=== PATIENT | female | born 1985 | race Caucasian/White ===

== ENCOUNTER → 2018-01-12 15:08 | Outpatient (CLI) | payer MEDICARE, SELFPAY ==
--- NOTE | 2018-01-12 15:13 | DI.RAD.S_ITS ---
PROCEDURE: XR CHEST 2V INDICATIONS: Shortness of breath TECHNIQUE: 2 views of the chest were acquired. COMPARISON: [facility], , XR CXR 2V, 02/24/2004, 12:19. FINDINGS: Surgical changes and devices: None. Lungs and pleura: No pleural effusions or pneumothorax. Lungs are clear. Mediastinum: Mediastinal contours are normal. Heart size is normal. Hiatal hernia Bones and chest wall: No suspicious bony abnormalities. Soft tissues appear unremarkable. IMPRESSION: No acute disease. Hiatal hernia Dictated by: Roberto Mckee M.D. on 01/12/2018 at 16:49 Approved by: Roberto Mckee M.D. on 01/12/2018 at 16:51
[2018-01-12 16:07] LABS: Add Manual Diff / Slide Review NO; Basophils Percent Auto 1.4 % (0-2); Eosinophils Percent Auto 4.1 % (2-4); Mean Corpuscular HGB Conc 27.2 % (30-36); Mean Corpuscular Hemoglobin 14.7 PG (26-34); Mean Corpuscular Volume 54.3 fL (80-100); Monocytes Percent Auto 4.8 % (3-14); Neutrophils Absolute Auto 3500 /uL (3000-5900); Neutrophils Percent Auto 68.7 % (50-75); Platelet Count 382 X10^3/uL (150-400); Red Blood Cell Count 3.31 X10^6/uL (4.0-5.2); Red Cell Distribution Width 21.1 % (11.6-14.8)
[2018-01-12 16:25] LABS: Alanine Aminotransferase 21 IU/L (9-52); Albumin 4.1 g/dL (3.5-5.0); Albumin Globulin Ratio 1.5 (1.0-2.8); Alkaline Phosphatase 69 U/L (38-126); Aspartate Aminotransferase 16 IU/L (14-36); BUN Creatinine Ratio 22.5 (6-22); Bilirubin Total 0.2 mg/dL (0.2-1.3); Blood Urea Nitrogen 18 mg/dL (7-17); Calcium 8.8 mg/dL (8.4-10.2); Carbon Dioxide 22 mmol/L (22-32); Chloride 105 mmol/L (98-107); Estimated Glomerular Filt Rate > 60.0 mL/min (>60); Globulin 2.7 g/dL (1.7-4.1); Glucose 116 mg/dL (70-100); HEMOLYSIS < 15 (0-50); Potassium 4.1 mmol/L (3.4-5.1); Sodium 140 mmol/L (137-145); Total Protein 6.8 g/dL (6.3-8.2)
[2018-01-12 16:26] LABS: Hemoglobin 4.9 g/dL (12.0-16.0)
[2018-01-12 16:40] LABS: Anisocytosis 2+; Hypochromasia 3+; Microcytosis 3+; Polychromasia 1+
[2018-01-12 16:55] LABS: Thyroid Stimulating Hormone 0.58 uIU/mL (0.47-4.68)
== END ==
PROVIDERS: PCP Physician Assistant; Visit Provider Physician Assistant
DX: R06.09 Other forms of dyspnea (principal); R53.83 Other fatigue
CPT/HCPCS: 36415; 71046; 80053; 84443; 85025

== ENCOUNTER 2018-01-13 09:11 | Observation (INO) | payer MEDICARE, SELFPAY ==
[2018-01-13] VITALS (13 sets, daily range): BP systolic 114–155; BP diastolic 59–94; PULSE 76–107; RESP 12–22; TEMP 36.4–37.2; O2SAT 98–100; BMI 29.5
[2018-01-13 09:59] LABS: INR 1.1 (0.9-1.3); Prothrombin Time 12.1 SECONDS (10.1-12.7)
[2018-01-13 10:00] LABS: Add Manual Diff / Slide Review NO; Basophils Percent Auto 0.9 % (0-2); Eosinophils Percent Auto 5.4 % (2-4); Lymphocytes Percent Auto 26.4 % (25-40); Mean Corpuscular HGB Conc 27.2 % (30-36); Mean Corpuscular Hemoglobin 14.6 PG (26-34); Mean Corpuscular Volume 53.6 fL (80-100); Monocytes Percent Auto 8.4 % (3-14); Neutrophils Absolute Auto 2100 /uL (3000-5900); Neutrophils Percent Auto 58.9 % (50-75); Platelet Count 370 X10^3/uL (150-400); Red Blood Cell Count 3.46 X10^6/uL (4.0-5.2); White Blood Cell Count 3.6 X10^3/uL (4.5-11.0)
[2018-01-13 10:02] LABS: Hemoglobin 5.1 g/dL (12.0-16.0); PTT Partial Thromboplastin Tim 23 SECONDS (26.4-36.2)
[2018-01-13 10:03] LABS: Alanine Aminotransferase 22 IU/L (9-52); Albumin 4.3 g/dL (3.5-5.0); Albumin Globulin Ratio 1.6 (1.0-2.8); Alkaline Phosphatase 66 U/L (38-126); Aspartate Aminotransferase 19 IU/L (14-36); BUN Creatinine Ratio 17.5 (6-22); Bilirubin Total 0.3 mg/dL (0.2-1.3); Blood Urea Nitrogen 14 mg/dL (7-17); Calcium 9.1 mg/dL (8.4-10.2); Carbon Dioxide 25 mmol/L (22-32); Chloride 105 mmol/L (98-107); Estimated Glomerular Filt Rate > 60.0 mL/min (>60); Globulin 2.7 g/dL (1.7-4.1); Glucose 98 mg/dL (70-100); HEMOLYSIS < 15 (0-50); Hematocrit 18.6 % (36-46); Potassium 4.1 mmol/L (3.4-5.1); Sodium 143 mmol/L (137-145)
--- NOTE | 2018-01-13 11:15 | ED.RECABL ---
HPI - Recheck/Abnormal Lab/Rx General Chief Complaint: Recheck/Abnormal Lab/Rx Stated Complaint: IRON CRITICALLY LOW Time Seen by Provider: 01/13/18 09:26 Source: patient Mode of arrival: ambulatory Limitations: no limitations History of Present Illness HPI narrative: This is a 32-year-old female comes to the emergency department for abnormal lab work. She was told she has a critically low iron level. When evaluated in the computer it shows her hemoglobin is in the range of 4. Patient states that she has not noticed any bleeding, she has not had abnormally heavy periods, she has not noticed any black or bloody stools. She has not had any other issues with bleeding. She has noted that she gets short of breath and has chest pain when she exerts herself particularly going up stairs, she has also noted that her legs get crampy and uncomfortable as well. Patient states she will sometimes feel lightheaded. She is not having syncope. She has been continuing her daily activities of does get tired very easily. She is set up for a PFT and has recently been given albuterol inhaler only discussed this may be related more to her low hemoglobin and anemia and having any lung disease. Related Data Home Medications Medication Instructions Recorded Confirmed [id number] 250 1 tab PO PRN PRN 12/29/17 01/13/18 mg-250 mg-65 mg tablet levonorgestrel-ethinyl estrad 1 tab PO DAILY 01/13/18 01/13/18 [Less[place]] Previous Rx's Medication Instructions Recorded albuterol sulfate HFA 90 2 puff INHALATION ONCE PRN #18 gram 12/29/17 mcg/actuation aerosol inhaler Allergies Allergy/AdvReac Type Severity Reaction Status Date / Time No Known Drug Allergies Allergy Unverified 12/29/17 14:34 Review of Systems Review of Systems All systems reviewed & are unremarkable except as noted in HPI and below Constitutional Denies anorexia, Reports fatigue, Denies fever(s), Reports headache(s), Reports malaise, Denies night sweats and Denies weakness ENT Ears, Nose, Mouth, and Throat: Reports headache(s) Cardiovascular Reports chest pain, Denies chest pain at rest, Reports chest pain with activity, Denies diaphoresis, Denies syncope, Denies irregular heart rhythm, Denies lightheadedness, Denies palpitations, Denies dyspnea, Reports dyspnea on exertion and Denies orthopnea Respiratory Denies chest congestion, Denies cough, Denies dyspnea, Reports dyspnea on exertion and Denies wheezing Gastrointestinal Gastrointestinal: Denies abdominal pain, Denies melena, Denies hematochezia, Denies change in bowel habits, Denies diarrhea, Denies nausea and Denies vomiting Genitourinary Denies abnormal menses, Denies abnormal vaginal bleeding, Denies hematuria, Denies flank pain, Denies urinary incontinence, Denies urinary urgency and Denies other (hematuria) Integumentary/Breasts Denies unusual bruising Neurologic Denies syncope, Reports headache(s) and Denies weakness Endocrine Reports fatigue and Denies palpitations Allergic/Immunologic Denies wheezing [facility] Medical History Asperger's disorder (07/01/11) Surgical History History of third molar tooth extraction Social History household members: family Smoking Status: Never smoker second hand exposure: Yes (sometimes at work.) alcohol intake: current substance use type: does not use Exam Narrative Exam Narrative: GENERAL: Alert and oriented x three, well-nourished, well-appearing female that is pale. HEENT: Head normocephalic, atraumatic, EOMI, pupils reactive, face symmetric, moist mucous membranes NECK: Supple, full range of motion CARDIOVASCULAR: Regular rate and rhythm without murmurs, rubs or gallops. RESPIRATORY: Breath sounds equal bilaterally, no wheezes rales or rhonchi. ABDOMEN: Soft, nontender. Normoactive bowel sounds all 4 quadrants. No guarding or rebound, rigidity, no mass : No CVA tenderness EXTREMITIES: Normal range of motion, no clubbing or edema. Neurovascularly intact NEUROLOGICAL: Cranial nerves II through XII grossly intact. Moving all extremities SKIN: Warm, dry, no petechiae, no rashes or lesions. Initial Vital Signs Initial Vital Signs: Vital Signs Temperature 98.5 F 01/13/18 09:14 Pulse Rate 107 H 01/13/18 09:14 Respiratory Rate 20 01/13/18 09:14 Blood Pressure 155/94 H 01/13/18 09:14 Pulse Oximetry 100 01/13/18 09:14 Course Orders Ordered: ED Orders 01/13/18 09:35 Complete Blood Count AUTO DIFF Stat Comprehensive Metabolic Panel Stat Packed Cells Stat Partial Thromboplastin Time Stat Prothrombin Time INR Stat Type and Screen Stat 01/13/18 11:26 Ferritin Urgent Iron Profile (w/ % Saturation) Urgent 01/13/18 13:43 Education, smoking cessation ONGOING 01/13/18 13:45 Consult to Physician Routine 01/14/18 05:00 Complete Blood Count AUTO DIFF Routine Dextrose/Sodium Chloride (Dextrose 5%-0.45% Ns) 1,000 mls @ 100 mls/hr IV CONT KODY Discontinued Medications Polyethylene Glycol/Electrolytes (Golytely Solution) 2,000 ml PO NOW ONE Stop: 01/13/18 15:56 Vital Signs - 8 hr 01/13/18 09:14 01/13/18 11:30 01/13/18 11:38 Temperature 98.5 F 98.2 F 98.3 F Pulse Rate 107 H 94 H 88 Respiratory Rate 20 20 18 Blood Pressure 155/94 H 132/75 127/71 Blood Pressure [Left Arm] 132/75 Pulse Oximetry 100 100 01/13/18 11:48 01/13/18 12:21 01/13/18 12:46 Temperature 98.9 F 98.4 F Pulse Rate 92 H 89 93 H Respiratory Rate 22 20 20 Blood Pressure 126/67 118/71 134/71 Blood Pressure [Left Arm] Pulse Oximetry 100 01/13/18 13:50 01/13/18 13:52 01/13/18 14:11 Temperature 97.9 F 97.9 F 98.8 F Pulse Rate 92 H 92 H 83 Respiratory Rate 20 20 18 Blood Pressure 123/61 123/61 126/76 Blood Pressure [Left Arm] Pulse Oximetry 100 MDM - Recheck/Abnormal Lab/Rx Lab Data Result diagrams: 01/13/18 09:35 01/13/18 09:35 Lab Results 01/13/18 01/13/18 01/13/18 Range/Units 09:35 09:35 09:35 WBC 3.6 L (4.5-11.0) X10^3/uL RBC 3.46 L (4.0-5.2) X10^6/uL Hgb 5.1 L* (12.0-16.0) g/dL Hct 18.6 L* (36-46) % MCV 53.6 L (80-100) fL MCH 14.6 L (26-34) PG MCHC 27.2 L (30-36) % RDW 21.0 H (11.6-14.8) % Plt Count 370 (150-400) X10^3/uL Neut % (Auto) 58.9 (50-75) % Lymph % (Auto) 26.4 (25-40) % [place] % (Auto) 8.4 (3-14) % Eos % (Auto) 5.4 H (2-4) % Baso % (Auto) 0.9 (0-2) % Neut # (Auto) 2100 L (6763-2593) /uL PT (10.1-12.7) SECONDS INR (0.9-1.3) APTT (26.4-36.2) SECONDS Sodium 143 (137-145) mmol/L Potassium 4.1 (3.4-5.1) mmol/L Chloride 105 (98-107) mmol/L Carbon Dioxide 25 (22-32) mmol/L BUN 14 (7-17) mg/dL Creatinine 0.80 (0.52-1.04) mg/dL Estimated GFR > 60.0 (>60) mL/min BUN/Creatinine Ratio 17.5 (6-22) Glucose 98 (70-100) mg/dL Calcium 9.1 (8.4-10.2) mg/dL Iron (37-170) ug/dL TIBC (265-497) ug/dL % Saturation (15-50) % Transferrin (206-381) mg/dL Ferritin (6.27-137) ng/mL Total Bilirubin 0.3 (0.2-1.3) mg/dL AST 19 (14-36) IU/L ALT 22 (9-52) IU/L Alkaline Phosphatase 66 (38-126) U/L Total Protein 7.0 (6.3-8.2) g/dL Albumin 4.3 (3.5-5.0) g/dL Globulin 2.7 (1.7-4.1) g/dL Albumin/Globulin Ratio 1.6 (1.0-2.8) Blood Type A Positive Antibody Screen Negative Crossmatch See Detail 01/13/18 01/13/18 01/13/18 Range/Units 09:35 11:26 11:26 WBC (4.5-11.0) X10^3/uL RBC (4.0-5.2) X10^6/uL Hgb (12.0-16.0) g/dL Hct (36-46) % MCV (80-100) fL MCH (26-34) PG MCHC (30-36) % RDW (11.6-14.8) % Plt Count (150-400) X10^3/uL Neut % (Auto) (50-75) % Lymph % (Auto) (25-40) % [place] % (Auto) (3-14) % Eos % (Auto) (2-4) % Baso % (Auto) (0-2) % Neut # (Auto) (3625-0211) /uL PT 12.1 (10.1-12.7) SECONDS INR 1.1 (0.9-1.3) APTT 23 L (26.4-36.2) SECONDS Sodium (137-145) mmol/L Potassium (3.4-5.1) mmol/L Chloride (98-107) mmol/L Carbon Dioxide (22-32) mmol/L BUN (7-17) mg/dL Creatinine (0.52-1.04) mg/dL Estimated GFR (>60) mL/min BUN/Creatinine Ratio (6-22) Glucose (70-100) mg/dL Calcium (8.4-10.2) mg/dL Iron 14 L (37-170) ug/dL TIBC 618 H (265-497) ug/dL % Saturation 2 L (15-50) % Transferrin 574 H (206-381) mg/dL Ferritin 1.0 L (6.27-137) ng/mL Total Bilirubin (0.2-1.3) mg/dL AST (14-36) IU/L ALT (9-52) IU/L Alkaline Phosphatase (38-126) U/L Total Protein (6.3-8.2) g/dL Albumin (3.5-5.0) g/dL Globulin (1.7-4.1) g/dL Albumin/Globulin Ratio (1.0-2.8) Blood Type Antibody Screen Crossmatch [facility] Narrative Medical decision making narrative: Spoke with Dr. Livingston, he accepts for observation. Discussed with patient at length she is comfortable with receiving blood and we discussed that she would benefit from 2 units. We also discussed possible causes for her anemia but no clear causes were discerned in the department. Discharge Plan Departure Patient Disposition: Admitted as Observation Clinical Impression: Symptomatic anemia Discharge Date/Time: 01/13/18 12:29 Interventions: ED Discharge Assessment Last Done: 01/13/18 12:28 Admit Date/Time: 01/13/18 11:39 Admit Provider: Sony Livingston
--- NOTE | 2018-01-13 11:19 | ED_ITS ---
HPI - Recheck/Abnormal Lab/Rx General Chief Complaint: Recheck/Abnormal Lab/Rx Stated Complaint: IRON CRITICALLY LOW Time Seen by Provider: 01/13/18 09:26 Source: patient Mode of arrival: ambulatory Limitations: no limitations History of Present Illness HPI narrative: This is a 32-year-old female comes to the emergency department for abnormal lab work. She was told she has a critically low iron level. When evaluated in the computer it shows her hemoglobin is in the range of 4. Patient states that she has not noticed any bleeding, she has not had abnormally heavy periods, she has not noticed any black or bloody stools. She has not had any other issues with bleeding. She has noted that she gets short of breath and has chest pain when she exerts herself particularly going up stairs, she has also noted that her legs get crampy and uncomfortable as well. Patient states she will sometimes feel lightheaded. She is not having syncope. She has been continuing her daily activities of does get tired very easily. She is set up for a PFT and has recently been given albuterol inhaler only discussed this may be related more to her low hemoglobin and anemia and having any lung disease. Related Data Home Medications Medication Instructions Recorded Confirmed [id number] 250 1 tab PO PRN PRN 12/29/17 01/13/18 mg-250 mg-65 mg tablet levonorgestrel-ethinyl estrad 1 tab PO DAILY 01/13/18 01/13/18 [[place]] Previous Rx's Medication Instructions Recorded albuterol sulfate HFA 90 2 puff INHALATION ONCE PRN #18 gram 12/29/17 mcg/actuation aerosol inhaler Allergies Allergy/AdvReac Type Severity Reaction Status Date / Time No Known Drug Allergies Allergy Unverified 12/29/17 14:34 Review of Systems Review of Systems All systems reviewed & are unremarkable except as noted in HPI and below Constitutional Denies anorexia, Reports fatigue, Denies fever(s), Reports headache(s), Reports malaise, Denies night sweats and Denies weakness ENT Ears, Nose, Mouth, and Throat: Reports headache(s) Cardiovascular Reports chest pain, Denies chest pain at rest, Reports chest pain with activity , Denies diaphoresis, Denies syncope, Denies irregular heart rhythm, Denies lightheadedness, Denies palpitations, Denies dyspnea, Reports dyspnea on exertion and Denies orthopnea Respiratory Denies chest congestion, Denies cough, Denies dyspnea, Reports dyspnea on exertion and Denies wheezing Gastrointestinal Gastrointestinal: Denies abdominal pain, Denies melena, Denies hematochezia, Denies change in bowel habits, Denies diarrhea, Denies nausea and Denies vomiting Genitourinary Denies abnormal menses, Denies abnormal vaginal bleeding, Denies hematuria, Denies flank pain, Denies urinary incontinence, Denies urinary urgency and Denies other (hematuria) Integumentary/Breasts Denies unusual bruising Neurologic Denies syncope, Reports headache(s) and Denies weakness Endocrine Reports fatigue and Denies palpitations Allergic/Immunologic Denies wheezing [facility] Medical History Asperger's disorder (07/01/11) Surgical History History of third molar tooth extraction Social History household members: family Smoking Status: Never smoker second hand exposure: Yes (sometimes at work.) alcohol intake: current substance use type: does not use Exam Narrative Exam Narrative: GENERAL: Alert and oriented x three, well-nourished, well- appearing female that is pale. HEENT: Head normocephalic, atraumatic, EOMI, pupils reactive, face symmetric, moist mucous membranes NECK: Supple, full range of motion CARDIOVASCULAR: Regular rate and rhythm without murmurs, rubs or gallops. RESPIRATORY: Breath sounds equal bilaterally, no wheezes rales or rhonchi. ABDOMEN: Soft, nontender. Normoactive bowel sounds all 4 quadrants. No guarding or rebound, rigidity, no mass : No CVA tenderness EXTREMITIES: Normal range of motion, no clubbing or edema. Neurovascularly intact NEUROLOGICAL: Cranial nerves II through XII grossly intact. Moving all extremities SKIN: Warm, dry, no petechiae, no rashes or lesions. Initial Vital Signs Initial Vital Signs: Vital Signs Temperature 98.5 F 01/13/18 09:14 Pulse Rate 107 H 01/13/18 09:14 Respiratory Rate 20 01/13/18 09:14 Blood Pressure 155/94 H 01/13/18 09:14 Pulse Oximetry 100 01/13/18 09:14 Course Orders Ordered: ED Orders 01/13/18 09:35 Complete Blood Count AUTO DIFF Stat Comprehensive Metabolic Panel Stat Packed Cells Stat Partial Thromboplastin Time Stat Prothrombin Time INR Stat Type and Screen Stat 01/13/18 11:26 Ferritin Urgent Iron Profile (w/ % Saturation) Urgent 01/13/18 13:43 Education, smoking cessation ONGOING 01/13/18 13:45 Consult to Physician Routine 01/14/18 05:00 Complete Blood Count AUTO DIFF Routine Dextrose/Sodium Chloride (Dextrose 5%-0.45% Ns) 1,000 mls @ 100 mls/hr IV CONT KODY Discontinued Medications Polyethylene Glycol/Electrolytes (Golytely Solution) 2,000 ml PO NOW ONE Stop: 01/13/18 15:56 Vital Signs - 8 hr 01/13/18 09:14 01/13/18 11:30 01/13/18 11:38 Temperature 98.5 F 98.2 F 98.3 F Pulse Rate 107 H 94 H 88 Respiratory Rate 20 20 18 Blood Pressure 155/94 H 132/75 127/71 Blood Pressure [Left Arm] 132/75 Pulse Oximetry 100 100 01/13/18 11:48 01/13/18 12:21 01/13/18 12:46 Temperature 98.9 F 98.4 F Pulse Rate 92 H 89 93 H Respiratory Rate 22 20 20 Blood Pressure 126/67 118/71 134/71 Blood Pressure [Left Arm] Pulse Oximetry 100 01/13/18 13:50 01/13/18 13:52 01/13/18 14:11 Temperature 97.9 F 97.9 F 98.8 F Pulse Rate 92 H 92 H 83 Respiratory Rate 20 20 18 Blood Pressure 123/61 123/61 126/76 Blood Pressure [Left Arm] Pulse Oximetry 100 MDM - Recheck/Abnormal Lab/Rx Lab Data Result diagrams: 01/13/18 09:35 01/13/18 09:35 Lab Results 01/13/18 01/13/18 01/13/18 Range/Units 09:35 09:35 09:35 WBC 3.6 L (4.5-11.0) X10^3/uL RBC 3.46 L (4.0-5.2) X10^6/uL Hgb 5.1 L* (12.0-16.0) g/dL Hct 18.6 L* (36-46) % MCV 53.6 L (80-100) fL MCH 14.6 L (26-34) PG MCHC 27.2 L (30-36) % RDW 21.0 H (11.6-14.8) % Plt Count 370 (150-400) X10^3/uL Neut % (Auto) 58.9 (50-75) % Lymph % (Auto) 26.4 (25-40) % [place] % (Auto) 8.4 (3-14) % Eos % (Auto) 5.4 H (2-4) % Baso % (Auto) 0.9 (0-2) % Neut # (Auto) 2100 L (0894-2810) /uL PT (10.1-12.7) SECONDS INR (0.9-1.3) APTT (26.4-36.2) SECONDS Sodium 143 (137-145) mmol/L Potassium 4.1 (3.4-5.1) mmol/L Chloride 105 (98-107) mmol/L Carbon Dioxide 25 (22-32) mmol/L BUN 14 (7-17) mg/dL Creatinine 0.80 (0.52-1.04) mg/dL Estimated GFR > 60.0 (>60) mL/min BUN/Creatinine Ratio 17.5 (6-22) Glucose 98 (70-100) mg/dL Calcium 9.1 (8.4-10.2) mg/dL Iron (37-170) ug/dL TIBC (265-497) ug/dL % Saturation (15-50) % Transferrin (206-381) mg/dL Ferritin (6.27-137) ng/mL Total Bilirubin 0.3 (0.2-1.3) mg/dL AST 19 (14-36) IU/L ALT 22 (9-52) IU/L Alkaline Phosphatase 66 (38-126) U/L Total Protein 7.0 (6.3-8.2) g/dL Albumin 4.3 (3.5-5.0) g/dL Globulin 2.7 (1.7-4.1) g/dL Albumin/Globulin Ratio 1.6 (1.0-2.8) Blood Type A Positive Antibody Screen Negative Crossmatch See Detail 01/13/18 01/13/18 01/13/18 Range/Units 09:35 11:26 11:26 WBC (4.5-11.0) X10^3/uL RBC (4.0-5.2) X10^6/uL Hgb (12.0-16.0) g/dL Hct (36-46) % MCV (80-100) fL MCH (26-34) PG MCHC (30-36) % RDW (11.6-14.8) % Plt Count (150-400) X10^3/uL Neut % (Auto) (50-75) % Lymph % (Auto) (25-40) % [place] % (Auto) (3-14) % Eos % (Auto) (2-4) % Baso % (Auto) (0-2) % Neut # (Auto) (1155-4882) /uL PT 12.1 (10.1-12.7) SECONDS INR 1.1 (0.9-1.3) APTT 23 L (26.4-36.2) SECONDS Sodium (137-145) mmol/L Potassium (3.4-5.1) mmol/L Chloride (98-107) mmol/L Carbon Dioxide (22-32) mmol/L BUN (7-17) mg/dL Creatinine (0.52-1.04) mg/dL Estimated GFR (>60) mL/min BUN/Creatinine Ratio (6-22) Glucose (70-100) mg/dL Calcium (8.4-10.2) mg/dL Iron 14 L (37-170) ug/dL TIBC 618 H (265-497) ug/dL % Saturation 2 L (15-50) % Transferrin 574 H (206-381) mg/dL Ferritin 1.0 L (6.27-137) ng/mL Total Bilirubin (0.2-1.3) mg/dL AST (14-36) IU/L ALT (9-52) IU/L Alkaline Phosphatase (38-126) U/L Total Protein (6.3-8.2) g/dL Albumin (3.5-5.0) g/dL Globulin (1.7-4.1) g/dL Albumin/Globulin Ratio (1.0-2.8) Blood Type Antibody Screen Crossmatch [facility] Narrative Medical decision making narrative: Spoke with Dr. Livingston, he accepts for observation. Discussed with patient at length she is comfortable with receiving blood and we discussed that she would benefit from 2 units. We also discussed possible causes for her anemia but no clear causes were discerned in the department. Discharge Plan Departure Patient Disposition: Admitted as Observation Clinical Impression: Symptomatic anemia Discharge Date/Time: 01/13/18 12:29 Interventions: ED Discharge Assessment Last Done: 01/13/18 12:28 Admit Date/Time: 01/13/18 11:39 Admit Provider: Sony Livingston
[2018-01-13 11:35] LABS: HEMOLYSIS < 15 (0-50); Iron 14 ug/dL (37-170)
[2018-01-13 11:45] LABS: Percent Iron Saturation 2 % (15-50); Total Iron Binding Capacity 618 ug/dL (265-497); Transferrin 574 mg/dL (206-381)
--- NOTE | 2018-01-13 13:54 | PM.HP.1 ---
History of Present Illness Date Patient Seen: 01/13/18 Time Patient Seen: 13:00 Chief complaint: IRON CRITICALLY LOW Narrative: Patient is a 32-year-old female with Asperger's sent to the emergency department due to newly discovered severe anemia. She had labs drawn yesterday at her provider's office due to complaints of leg cramps, chest pain and shortness of breath. Her hemoglobin came back at 4.9. Symptoms have been present for the past month. She has not noticed any red blood or melena. She does complain of frequent daily acid reflux for which she does not medicate. She takes occasional Excedrin containing aspirin for her migraines. She has never been anemic. No recent significant weight change. Family history unknown. Patient History Medical History Asperger's disorder (07/01/11) Surgical History History of third molar tooth extraction Family & Social History Social History: household members family Safety & Behavioral: Feels Safe in Current Yes Environment Suicidal Ideation Description None Suicide Plan Description No Plan Tobacco & Substance use: Smoking Status Never smoker alcohol intake current Substance Use Type does not use Meds Home Medications Medication Instructions Recorded Confirmed Type albuterol sulfate HFA 90 2 puff INHALATION ONCE PRN #18 gram 12/29/17 01/13/18 Rx mcg/actuation aerosol inhaler [id number] 250 1 tab PO PRN PRN 12/29/17 01/13/18 History mg-250 mg-65 mg tablet levonorgestrel-ethinyl estrad 1 tab PO DAILY 01/13/18 01/13/18 History [[place]] Allergies Allergy/AdvReac Type Severity Reaction Status Date / Time No Known Drug Allergies Allergy Unverified 12/29/17 14:34 Review of Systems Review of Systems All systems reviewed & are unremarkable except as noted in HPI and below Exam Vital Signs (past 8 hours): - 01/13/18 09:14 01/13/18 11:30 01/13/18 11:38 Temperature 98.5 F 98.2 F 98.3 F Pulse Rate 107 H 94 H 88 Respiratory Rate 20 20 18 Blood Pressure 155/94 H 132/75 127/71 Blood Pressure [Left Arm] 132/75 Pulse Oximetry 100 100 01/13/18 11:48 01/13/18 12:21 01/13/18 12:46 Temperature 98.9 F 98.4 F Pulse Rate 92 H 89 93 H Respiratory Rate 22 20 20 Blood Pressure 126/67 118/71 134/71 Blood Pressure [Left Arm] Pulse Oximetry 100 01/13/18 13:50 01/13/18 13:52 Temperature 97.9 F 97.9 F Pulse Rate 92 H 92 H Respiratory Rate 20 20 Blood Pressure 123/61 123/61 Blood Pressure [Left Arm] Pulse Oximetry Oxygen Delivery Method Room Air Narrative Exam Narrative: GENERAL: This is an alert well-nourished, well-developed patient, in no apparent distress. HEAD: Atraumatic. Normocephalic. EYES: Pupils equal, round and reactive. Extraocular motions intact. No scleral icterus. No injection or drainage. OROPHARYNX: moist mucosa NECK: Trachea midline. No JVD or lymphadenopathy. CARDIOVASCULAR: Regular rate and rhythm without murmurs, gallops, or rubs. RESPIRATORY: Clear to auscultation bilaterally. GASTROINTESTINAL: Abdomen nondistended, soft, non-tender. No hepato-splenomegaly, or palpable masses. EXTREMITIES: No edema. NEUROLOGICAL: Alert, well oriented, speech is intact, normal bilateral upper and lower extremity strength SKIN: warm, dry, no rash Objective Imaging Chest x-ray: Radiologist's impression: No acute disease. Hiatal hernia Labs Result Diagrams: 01/13/18 09:35 01/13/18 09:35 Labs: Laboratory Results - last 24 hr 01/13/18 01/13/18 01/13/18 09:35 09:35 09:35 WBC 3.6 L RBC 3.46 L Hgb 5.1 L* Hct 18.6 L* MCV 53.6 L MCH 14.6 L MCHC 27.2 L RDW 21.0 H Plt Count 370 Neut % (Auto) 58.9 Lymph % (Auto) 26.4 [place] % (Auto) 8.4 Eos % (Auto) 5.4 H Baso % (Auto) 0.9 Neut # (Auto) 2100 L PT INR APTT Sodium 143 Potassium 4.1 Chloride 105 Carbon Dioxide 25 BUN 14 Creatinine 0.80 Estimated GFR > 60.0 BUN/Creatinine Ratio 17.5 Glucose 98 Calcium 9.1 Iron TIBC % Saturation Transferrin Ferritin Total Bilirubin 0.3 AST 19 ALT 22 Alkaline Phosphatase 66 Total Protein 7.0 Albumin 4.3 Globulin 2.7 Albumin/Globulin Ratio 1.6 Blood Type A Positive Antibody Screen Negative Crossmatch See Detail 01/13/18 01/13/18 01/13/18 09:35 11:26 11:26 WBC RBC Hgb Hct MCV MCH MCHC RDW Plt Count Neut % (Auto) Lymph % (Auto) [place] % (Auto) Eos % (Auto) Baso % (Auto) Neut # (Auto) PT 12.1 INR 1.1 APTT 23 L Sodium Potassium Chloride Carbon Dioxide BUN Creatinine Estimated GFR BUN/Creatinine Ratio Glucose Calcium Iron 14 L TIBC 618 H % Saturation 2 L Transferrin 574 H Ferritin 1.0 L Total Bilirubin AST ALT Alkaline Phosphatase Total Protein Albumin Globulin Albumin/Globulin Ratio Blood Type Antibody Screen Crossmatch Assessment & Plan Plan: Assessment/Plan Narrative: 1. Severe blood loss anemia, likely subacute to chronic, and now symptomatic: Iron indices consistent with iron deficiency blood loss anemia. Hemoglobin 5.1, microcytic, severe enough to cause her symptoms of leg cramps and exertional dyspnea. She reports frequent acid reflux and also noted to have a hiatal hernia on x-ray. She also takes occasional aspirin containing medication for her migraines. Differential for blood loss anemia includes upper from esophagitis, ulcer disease or possibly lower source. She is getting transfused 2 units PRBC. Repeat H&H in a.m.. NPO after midnight. Consult to Dr. Keron Bright to see patient for upper endoscopy. If EGD normal then she can pursue outpatient colonoscopy. Quality VTE Deep Vein Thrombosis/Pulmonary Embolism Present on Admission: No
--- NOTE | 2018-01-13 14:03 | P.HP_ITS ---
History of Present Illness Date Patient Seen: 01/13/18 Time Patient Seen: 13:00 Chief complaint: IRON CRITICALLY LOW Narrative: Patient is a 32-year-old female with Asperger's sent to the emergency department due to newly discovered severe anemia. She had labs drawn yesterday at her provider's office due to complaints of leg cramps, chest pain and shortness of breath. Her hemoglobin came back at 4.9. Symptoms have been present for the past month. She has not noticed any red blood or melena. She does complain of frequent daily acid reflux for which she does not medicate. She takes occasional Excedrin containing aspirin for her migraines. She has never been anemic. No recent significant weight change. Family history unknown. Patient History Medical History Asperger's disorder (07/01/11) Surgical History History of third molar tooth extraction Family & Social History Social History: household members family Safety & Behavioral: Feels Safe in Current Yes Environment Suicidal Ideation Description None Suicide Plan Description No Plan Tobacco & Substance use: Smoking Status Never smoker alcohol intake current Substance Use Type does not use Meds Home Medications Medication Instructions Recorded Confirmed Type albuterol sulfate HFA 90 2 puff INHALATION ONCE PRN #18 gram 12/29/17 01/13/18 Rx mcg/actuation aerosol inhaler [id number]-[id number]-iqfbdduy 250 1 tab PO PRN PRN 12/29/17 01/13/18 History mg-250 mg-65 mg tablet levonorgestrel-ethinyl estrad 1 tab PO DAILY 01/13/18 01/13/18 History [Lessina] Allergies Allergy/AdvReac Type Severity Reaction Status Date / Time No Known Drug Allergies Allergy Unverified 12/29/17 14:34 Review of Systems Review of Systems All systems reviewed & are unremarkable except as noted in HPI and below Exam Vital Signs (past 8 hours): - 01/13/18 09:14 01/13/18 11:30 01/13/18 11:38 Temperature 98.5 F 98.2 F 98.3 F Pulse Rate 107 H 94 H 88 Respiratory Rate 20 20 18 Blood Pressure 155/94 H 132/75 127/71 Blood Pressure [Left Arm] 132/75 Pulse Oximetry 100 100 01/13/18 11:48 01/13/18 12:21 01/13/18 12:46 Temperature 98.9 F 98.4 F Pulse Rate 92 H 89 93 H Respiratory Rate 22 20 20 Blood Pressure 126/67 118/71 134/71 Blood Pressure [Left Arm] Pulse Oximetry 100 01/13/18 13:50 01/13/18 13:52 Temperature 97.9 F 97.9 F Pulse Rate 92 H 92 H Respiratory Rate 20 20 Blood Pressure 123/61 123/61 Blood Pressure [Left Arm] Pulse Oximetry Oxygen Delivery Method Room Air Narrative Exam Narrative: GENERAL: This is an alert well-nourished, well-developed patient , in no apparent distress. HEAD: Atraumatic. Normocephalic. EYES: Pupils equal, round and reactive. Extraocular motions intact. No scleral icterus. No injection or drainage. OROPHARYNX: moist mucosa NECK: Trachea midline. No JVD or lymphadenopathy. CARDIOVASCULAR: Regular rate and rhythm without murmurs, gallops, or rubs. RESPIRATORY: Clear to auscultation bilaterally. GASTROINTESTINAL: Abdomen nondistended, soft, non-tender. No hepato- splenomegaly, or palpable masses. EXTREMITIES: No edema. NEUROLOGICAL: Alert, well oriented, speech is intact, normal bilateral upper and lower extremity strength SKIN: warm, dry, no rash Objective Imaging Chest x-ray: Radiologist's impression: No acute disease. Hiatal hernia Labs Result Diagrams: 01/13/18 09:35 01/13/18 09:35 Labs: Laboratory Results - last 24 hr 01/13/18 01/13/18 01/13/18 09:35 09:35 09:35 WBC 3.6 L RBC 3.46 L Hgb 5.1 L* Hct 18.6 L* MCV 53.6 L MCH 14.6 L MCHC 27.2 L RDW 21.0 H Plt Count 370 Neut % (Auto) 58.9 Lymph % (Auto) 26.4 [place] % (Auto) 8.4 Eos % (Auto) 5.4 H Baso % (Auto) 0.9 Neut # (Auto) 2100 L PT INR APTT Sodium 143 Potassium 4.1 Chloride 105 Carbon Dioxide 25 BUN 14 Creatinine 0.80 Estimated GFR > 60.0 BUN/Creatinine Ratio 17.5 Glucose 98 Calcium 9.1 Iron TIBC % Saturation Transferrin Ferritin Total Bilirubin 0.3 AST 19 ALT 22 Alkaline Phosphatase 66 Total Protein 7.0 Albumin 4.3 Globulin 2.7 Albumin/Globulin Ratio 1.6 Blood Type A Positive Antibody Screen Negative Crossmatch See Detail 01/13/18 01/13/18 01/13/18 09:35 11:26 11:26 WBC RBC Hgb Hct MCV MCH MCHC RDW Plt Count Neut % (Auto) Lymph % (Auto) [place] % (Auto) Eos % (Auto) Baso % (Auto) Neut # (Auto) PT 12.1 INR 1.1 APTT 23 L Sodium Potassium Chloride Carbon Dioxide BUN Creatinine Estimated GFR BUN/Creatinine Ratio Glucose Calcium Iron 14 L TIBC 618 H % Saturation 2 L Transferrin 574 H Ferritin 1.0 L Total Bilirubin AST ALT Alkaline Phosphatase Total Protein Albumin Globulin Albumin/Globulin Ratio Blood Type Antibody Screen Crossmatch Assessment & Plan Plan: Assessment/Plan Narrative: 1. Severe blood loss anemia, likely subacute to chronic, and now symptomatic: Iron indices consistent with iron deficiency blood loss anemia. Hemoglobin 5.1 , microcytic, severe enough to cause her symptoms of leg cramps and exertional dyspnea. She reports frequent acid reflux and also noted to have a hiatal hernia on x-ray. She also takes occasional aspirin containing medication for her migraines. Differential for blood loss anemia includes upper from esophagitis, ulcer disease or possibly lower source. She is getting transfused 2 units PRBC. Repeat H&H in a.m.. NPO after midnight. Consult to Dr. Keron Bright to see patient for upper endoscopy. If EGD normal then she can pursue outpatient colonoscopy. Quality VTE Deep Vein Thrombosis/Pulmonary Embolism Present on Admission: No
--- NOTE | 2018-01-13 14:20 | PC.NURSE ---
Pt arrived via stretcher from E.D with 1st unit of PRBC infusing ~1230. Tolerated 1st unit w/o ASE completed ~1345. Oriented to room and call-light. Pale. 2nd unit infusing. Pt to have endo tomorrow a.m r/o ulcer. Call-light in reach, will continue to monitor.
--- NOTE | 2018-01-13 16:00 | P.CONS_ITS ---
History of Present Illness Date Patient Seen: 01/13/18 Chief complaint: IRON CRITICALLY LOW Reason for consult: Further evaluation for anemia of unknown origin Requesting provider: Sony Livingston Narrative: 32-year-old female with Asperger's admitted to the hospitalist service through the emergency department for symptomatic anemia. Associated chest pain and shortness of breath for the past month. Denies syncopal episodes , melena, hematemesis, hemoptysis, blood per rectum, abdominal pain. Has had reflux after meals. Infrequently uses Excedrin for migraines. [facility] Medical History Asperger's disorder (07/01/11) Surgical History History of third molar tooth extraction Social History household members: family Smoking Status: Never smoker second hand exposure: Yes (sometimes at work.) alcohol intake: current substance use type: does not use Meds Home Medications Medication Instructions Recorded Confirmed Type albuterol sulfate HFA 90 2 puff INHALATION ONCE PRN #18 gram 12/29/17 01/13/18 Rx mcg/actuation aerosol inhaler [id number]-jcspambtkdihl-mqnsrevq 250 1 tab PO PRN PRN 12/29/17 01/13/18 History mg-250 mg-65 mg tablet levonorgestrel-ethinyl estrad 1 tab PO DAILY 01/13/18 01/13/18 History [Lessina] Allergies Allergy/AdvReac Type Severity Reaction Status Date / Time No Known Drug Allergies Allergy Unverified 12/29/17 14:34 Review of Systems Review of Systems All systems reviewed & are unremarkable except as noted in HPI and below Exam Vital Signs (past 8 hours): - 01/13/18 09:14 01/13/18 11:30 01/13/18 11:38 Temperature 98.5 F 98.2 F 98.3 F Pulse Rate 107 H 94 H 88 Respiratory Rate 20 20 18 Blood Pressure 155/94 H 132/75 127/71 Blood Pressure [Left Arm] 132/75 Pulse Oximetry 100 100 01/13/18 11:48 01/13/18 12:21 01/13/18 12:46 Temperature 98.9 F 98.4 F Pulse Rate 92 H 89 93 H Respiratory Rate 22 20 20 Blood Pressure 126/67 118/71 134/71 Blood Pressure [Left Arm] Pulse Oximetry 100 01/13/18 13:50 01/13/18 13:52 01/13/18 14:11 Temperature 97.9 F 97.9 F 98.8 F Pulse Rate 92 H 92 H 83 Respiratory Rate 20 20 18 Blood Pressure 123/61 123/61 126/76 Blood Pressure [Left Arm] Pulse Oximetry 100 Oxygen Delivery Method Room Air Const General: cooperative, healthy appearing and comfortable HENWI Head: normal to inspection Eyes Sclera: sclerae normal Neck Neck: supple Chest Chest: normal inspection of the chest Resp Effort & Inspection: normal respiratory effort Cardio Rate: regular rate Rhythm: regular rhythm GI Inspection: normal to inspection Palpation: soft Skin General: no rashes or lesions noted Neuro General: alert, awake, tone normal and no focal motor deficits Extrem General: normal to inspection Psych Speech and Movement: speech and movement normal Affect: normal affect Attitude: cooperative Thought Content: normal Judgment: judgment good Objective Labs Result Diagrams: 01/13/18 09:35 01/13/18 09:35 Labs: Laboratory Results - last 24 hr 01/13/18 01/13/18 01/13/18 09:35 09:35 09:35 WBC 3.6 L RBC 3.46 L Hgb 5.1 L* Hct 18.6 L* MCV 53.6 L MCH 14.6 L MCHC 27.2 L RDW 21.0 H Plt Count 370 Neut % (Auto) 58.9 Lymph % (Auto) 26.4 [place] % (Auto) 8.4 Eos % (Auto) 5.4 H Baso % (Auto) 0.9 Neut # (Auto) 2100 L PT INR APTT Sodium 143 Potassium 4.1 Chloride 105 Carbon Dioxide 25 BUN 14 Creatinine 0.80 Estimated GFR > 60.0 BUN/Creatinine Ratio 17.5 Glucose 98 Calcium 9.1 Iron TIBC % Saturation Transferrin Ferritin Total Bilirubin 0.3 AST 19 ALT 22 Alkaline Phosphatase 66 Total Protein 7.0 Albumin 4.3 Globulin 2.7 Albumin/Globulin Ratio 1.6 Blood Type A Positive Antibody Screen Negative Crossmatch See Detail 01/13/18 01/13/18 01/13/18 09:35 11:26 11:26 WBC RBC Hgb Hct MCV MCH MCHC RDW Plt Count Neut % (Auto) Lymph % (Auto) [place] % (Auto) Eos % (Auto) Baso % (Auto) Neut # (Auto) PT 12.1 INR 1.1 APTT 23 L Sodium Potassium Chloride Carbon Dioxide BUN Creatinine Estimated GFR BUN/Creatinine Ratio Glucose Calcium Iron 14 L TIBC 618 H % Saturation 2 L Transferrin 574 H Ferritin 1.0 L Total Bilirubin AST ALT Alkaline Phosphatase Total Protein Albumin Globulin Albumin/Globulin Ratio Blood Type Antibody Screen Crossmatch Assessment & Plan Plan: Assessment/Plan Narrative: Anemia of unknown origin. Recommend upper and lower endoscopy for further evaluation. Procedure, benefits, alternatives, risks including bleeding, perforation and aspiration were reviewed with patient and patient's grandmother who was at bedside. Tenatively scheduled for EGD and Colonoscopy tomorrow between 130-2pm.
[2018-01-13] MEDS: PEG3350/SOD SULF,BICARB,CL/KCL 4,000 ML SOLUTION 2000 ML PO (16:51)
--- NOTE | 2018-01-13 19:10 | PC.NURSE ---
Assumed care of pt from outgoing shift at 1500 this day. Pt awake. MD pizarro in to see pt and changed to NPo diet and to start bowel prep for upper and lower scopes tomorrow. or called with time of [phone]. hopefully they will be able to get her in before then. consent signed on chart. Pt updated. blood completed. fluids started. pt ambulates steady gait in room. educated to tell staff when stool gets clearer in order to check. Pt drank golytley well without difficultly. asks for water and ice chips but told she cannot have many. and is NPo tomorrow morning. Pt had shower and is voiding. Pt uses call light. belongings and call light within reach. Pt calls when needing assistance.
[2018-01-13] MEDS: DEXTROSE 5%-0.45% NS 1,000 ML 100 ML IV (19:32)
[2018-01-14] VITALS (14 sets, daily range): BP systolic 86–144; BP diastolic 55–78; PULSE 67–96; RESP 11–20; TEMP 36.1–37; O2SAT 95–100; BMI 29.9
--- NOTE | 2018-01-14 | PATH_ITS ---
[facility] Accession Number: [id number] . 01 Material submitted: . PART A: BIOPSY OF BODY OF STOMACH PART B: BIOPSY OF ANTRUM OF STOMACH PART C: BIOPSY OF DISTAL ESOPHAGUS . 02 Diagnosis: A. Stomach, Body, Biopsy: Body-type mucosa with no diagnostic abnormality. No evidence of Helicobacter on H/E stain. Negative for intestinal metaplasia. Negative for dysplasia and malignancy. . B. Stomach, Antrum, Biopsies: Antral mucosa with no diagnostic abnormality. No evidence of Helicobacter on H/E stain. Negative for intestinal metaplasia. Negative for dysplasia and malignancy. . C. Distal Esophagus, Biopsy: Ulcerated squamous mucosa. No obvious fungal organisms or viral cytopathic effects identified on the H/E stain. Intraepithelial eosinphils are not increased. Negative for dysplasia and malignancy. [facility]/01/15/2018 . 02 Electronically signed: . Yolanda Rankin MD, Pathologist NPI- [id number] . 01 Gross description: . Received three formalin-filled containers, each labeled with the patient's name: . A. In a container labeled stomach body, the specimen consists of a 0.3 cm portion of tissue, entirely submitted in cassette A. B. In a container labeled antrum of stomach, the specimen consists of a 0.3 cm portion of tissue, entirely submitted in cassette B. C. In a container labeled distal esophagus, the specimen consists of two less than 0.1 cm to 0.3 cm portions of tissue, entirely submitted in cassette C. ([id number]) /FRR . 02 Pathologist provided ICD-10: R13.10 . 02 CPT . 885269, 170601, 251042 Specimen Comment: A duplicate report has been generated due to demographic updates. Performed at: 01 [facility] [address] [place] [address], [place], [place] [id number] MD Albino Salazar MD Phone: [phone] Performed at: 02 [facility] [address] [place], [place] [id number] MD Jerod Kathleen MD Phone: [phone]
--- NOTE | 2018-01-14 00:15 | PC.NURSE ---
Addendum entered by Taya Lee R.N. 01/14/18 06:37: Had 1 clear stool this morning. Original Note: Addendum entered by Taya Lee R.N. 01/14/18 05:54: Slept most of shift. Up to bathroom this morning and states she is feeling better but hungry. Reminded she is NPO and verbalizes understanding. Original Note: Patient with Asperger's syndrome who responds to questions but offers minimal in conversation. Irritated by being awakened for vitals/assessment. Breath sounds CTA with RA sat of 97%. HRR. Denies nausea. BT hypoactive; had Go-Lytely on previous shift for planned endoscopy/colonoscopy later today. NPO after 0000 for procedure. Independent with bed mobility. Requested she ask for assistance to bathroom during the night. Fall risk is moderate and bed alarm is on for safety. Denies pain.
[2018-01-14 05:27] LABS: Add Manual Diff / Slide Review NO; Basophils Percent Auto 1.3 % (0-2); Eosinophils Percent Auto 4.7 % (2-4); Hematocrit 22.2 % (36-46); Lymphocytes Percent Auto 28.5 % (25-40); Mean Corpuscular HGB Conc 29.8 % (30-36); Mean Corpuscular Hemoglobin 18.3 PG (26-34); Mean Corpuscular Volume 61.5 fL (80-100); Monocytes Percent Auto 9.2 % (3-14); Neutrophils Absolute Auto 2000 /uL (3000-5900); Neutrophils Percent Auto 56.3 % (50-75); Platelet Count 273 X10^3/uL (150-400); Red Blood Cell Count 3.62 X10^6/uL (4.0-5.2); Red Cell Distribution Width 32.4 % (11.6-14.8); White Blood Cell Count 3.5 X10^3/uL (4.5-11.0)
[2018-01-14 05:47] LABS: Hemoglobin 6.6 g/dL (12.0-16.0)
[2018-01-14 05:49] LABS: Dimorphic RBC YES; Polychromasia 1+
[2018-01-14 05:51] LABS: Anisocytosis 3+; Microcytosis 2+
[2018-01-14 05:53] LABS: Hypochromasia 3+
[2018-01-14] MEDS: DEXTROSE 5%-0.45% NS 1,000 ML 100 ML IV (05:53)
[2018-01-14 05:54] LABS: Poikilocytosis 1+
[2018-01-14] MEDS: SODIUM CHLORIDE 0.9% 1,000 ML 100 ML IV (12:16)
[2018-01-14] MEDS: FAMOTIDINE 20 MG/50 ML PIGGYBACK 200 MG IV (12:41)
[2018-01-14] MEDS: TETRACAINE/BENZOCAINE/BUTAMBEN (CETACAINE) BOTTLE 1 SPRAY TOP (12:55)
--- NOTE | 2018-01-14 13:52 | PM.OP.ENDO ---
Operative Date/Time/Diagnoses Date of procedure: 01/14/18 Pre-op diagnosis: Microcytic anemia Post-op diagnosis: same Procedure & Clinicians Study performed: Esophagogastroduodenoscopy with biopsies Colonoscopy Indications: Severe microcytic anemia symptomatic for shortness of breath. Surgeon: Keron Bright Procedure Notes SCOAP/Timeout: Done Procedure in detail: EGD: Patient taken from preoperative area to endoscopy suite with adequate iv access on hospital bed. She was position in the left lateral decubitus position with the head slightly upright. With Cetacaine spray was applied to the posterior pharynx. Timeout was performed. IV deep sedation sedation was titrated throughout the case while patient was continuously monitored by Anesthesia. Upper endoscope was easily advanced after visualizing the false cords through the esophagus into the stomach. The stomach was then insufflated with air. The pylorus was intubated and the 1st and 2nd portions of the duodenum were evaluated. No erythema or erosive changes were seen. No erythema or skin changes to suggest gastritis were seen in the antrum or body of stomach. Upon retroflexion the large sessile sphincter was completely effaced and a large hiatal hernia measuring 5 cm was identified (HIll grade 4). Biopsies of the antrum and body of stomach were obtained. GE junction was measured at 32 cm from the incisors. The Z-line appeared irregular but could not be visualized well due to frequent collapsing of the distal esophagus with the patient heavily breathing. Linear erythematous streaks were seen circumferentially in the distal esophagus limited to the mucosal folds, but not continuous between folds (LA classifcation B). Four-quadrant biopsies were performed in the distal esophagus following [place] protocol. The mid and proximal esophagus appeared normal. Residual air is insertion of the body of the stomach and the endoscope was removed. Patient tolerated this 1st procedure well and was then repositioned for colonoscopy. Inspection of anal orifice revealed no lesions. Digital exam failed to palpate any lesions. A well lubricated Azuki (Vozero/Gengibre)i colonoscope was gently introduced through the anus and advanced to the cecum using the dither-torque technique. Confirmation of reaching the cecum was acheived by identifying the appendiceal orifice and ileocecal valve. The mucosa of the colon was carefully inspected during the withdrawal of the colonoscope. Retroflexion of the endoscope in lower third of rectum did not demonstrate any hemorrhoids. Patient tolerated procedure well and was transferred to PACU in stable condition. Scope withdrawal time: 8 Sedation minutes: 41 Findings: other findings (Esophagitis LA class B, irregular Z-line, GE junction at 32 cm from incisors, LES [place] grade 4, 5 cm hiatal hernia) Specimen(s): other Complications: none Recommendations: No ASA/NSAIDS and Other recommendation (Outpatient follow up with surgical clinic to review biopsy results and for the evaluation of reflux.) Disposition: Acute Care (Return to floor)
--- NOTE | 2018-01-14 14:17 | SUR.PHASEI ---
PT TRANSFERED TO ACUTE CARE FLOOR IN STABLE CONDITION. PT TALKING TO STAFF DURING TRANSPORT. BEDSIDE REPORT GIVEN TO [place]. PT FAMILY AT BEDSIDE. TRANSFERED CARE OF PT TO KEYANA HERMOSILLO AT THAT TIME.
--- NOTE | 2018-01-14 14:19 | PC.NURSE ---
Day Shift: Patient doing well this shift. Denies pain. Patient to Endoscopy at 1145. Patient returned from Endo at 1415. Patient alert and oriented times 3. Room air. No acute distress. Will continue to monitor. Call light within reach. Family at bedside.
--- NOTE | 2018-01-14 16:24 | P.DS_ITS ---
History of Present Illness Chief complaint: IRON CRITICALLY LOW Narrative: Patient is a 32-year-old female with Asperger's sent to the emergency department due to newly discovered severe anemia. She had labs drawn yesterday at her provider's office due to complaints of leg cramps, chest pain and shortness of breath. Her hemoglobin came back at 4.9. Symptoms have been present for the past month. She has not noticed any red blood or melena. She does complain of frequent daily acid reflux for which she does not medicate. She takes occasional Excedrin containing aspirin for her migraines. She has never been anemic. No recent significant weight change. Family history unknown. Discharge Providers Date of admission: 01/13/18 11:39 Primary care physician: Rebecca Chiu PA-C Consults: 01/13/18 13:45 Consult to Physician Routine Comment: Consulting Provider: Keron Bright Reason for consultation: blood loss anemia Has provider been notified: Yes Discharge provider: Sony Livingston MD Discharge Date: 01/14/18 Summary Discharge Diagnosis: 1. Blood loss anemia, chronic/subacute 2. Reflux esophagitis, possible cause of anemia 3. Large hiatal hernia Procedures: Operative Date/Time/Diagnoses Date of procedure: 01/14/18 Pre-op diagnosis: Microcytic anemia Post-op diagnosis: same Procedure & Clinicians Study performed: Esophagogastroduodenoscopy with biopsies Colonoscopy Indications: Severe microcytic anemia symptomatic for shortness of breath. Surgeon: Keron Bright Procedure Notes SCOAP/Timeout: Done Procedure in detail: EGD: Patient taken from preoperative area to endoscopy suite with adequate iv access on hospital bed. She was position in the left lateral decubitus position with the head slightly upright. With Cetacaine spray was applied to the posterior pharynx. Timeout was performed. IV deep sedation sedation was titrated throughout the case while patient was continuously monitored by Anesthesia. Upper endoscope was easily advanced after visualizing the false cords through the esophagus into the stomach. The stomach was then insufflated with air. The pylorus was intubated and the 1st and 2nd portions of the duodenum were evaluated. No erythema or erosive changes were seen. No erythema or skin changes to suggest gastritis were seen in the antrum or body of stomach. Upon retroflexion the large sessile sphincter was completely effaced and a large hiatal hernia measuring 5 cm was identified (HIll grade 4). Biopsies of the antrum and body of stomach were obtained. GE junction was measured at 32 cm from the incisors. The Z-line appeared irregular but could not be visualized well due to frequent collapsing of the distal esophagus with the patient heavily breathing. Linear erythematous streaks were seen circumferentially in the distal esophagus limited to the mucosal folds, but not continuous between folds (LA classifcation B). Four-quadrant biopsies were performed in the distal esophagus following [place] protocol. The mid and proximal esophagus appeared normal. Residual air is insertion of the body of the stomach and the endoscope was removed. Patient tolerated this 1st procedure well and was then repositioned for colonoscopy. Inspection of anal orifice revealed no lesions. Digital exam failed to palpate any lesions. A well lubricated [employer] colonoscope was gently introduced through the anus and advanced to the cecum using the dither-torque technique. Confirmation of reaching the cecum was acheived by identifying the appendiceal orifice and ileocecal valve. The mucosa of the colon was carefully inspected during the withdrawal of the colonoscope. Retroflexion of the endoscope in lower third of rectum did not demonstrate any hemorrhoids. Patient tolerated procedure well and was transferred to PACU in stable condition. Scope withdrawal time: 8 Sedation minutes: 41 Findings: other findings (Esophagitis LA class B, irregular Z-line, GE junction at 32 cm from incisors, LES Hill grade 4, 5 cm hiatal hernia) Specimen(s): other Complications: none Recommendations: No ASA/NSAIDS and Other recommendation (Outpatient follow up with surgical clinic to review biopsy results and for the evaluation of reflux.) Disposition: Acute Care (Return to floor) Hospital Course: Patient was admitted with symptomatic anemia with hemoglobin in the 5.0 range presenting as symptoms of fatigue and dyspnea on exertion. There was no acute bleeding. She described chronic heartburn and cough suggestive of acid reflux. She was transfused 2 units PRBC with subsequent hemoglobin up to 6.6 and improvement of symptoms. She had EGD and colonoscopy prior to discharge. The EGD showed changes of reflux esophagitis but no actual ulcerations or evidence of active bleeding. She has large hiatal hernia and a nonfunctioning LES. There is no stomach ulcer or gastritis. Her colonoscopy was normal. She does take occasional ibuprofen and aspirin containing Excedrin which she will quit. We also started her on daily PPI therapy for acid reflux. She is also started on oral iron to take for the next 1-2 months. There is possibility the blood loss may be from other source such is in the small bowel or from iron malabsorption and further workup can be undertaken if necessary. She will be following up at her PCP office next week. Dr. Bright also recommended follow-up in surgery Clinic to review esophageal biopsy results. 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 Status at Discharge Functional status at discharge: independent ambulation Exam Vital Signs (past 8 hours): - 01/14/18 08:27 01/14/18 12:38 01/14/18 13:38 Temperature 97.7 F 97.7 F Pulse Rate 72 74 73 Respiratory Rate 17 17 18 Blood Pressure 122/65 126/77 91/55 L Pulse Oximetry 99 100 96 01/14/18 13:43 01/14/18 13:48 01/14/18 13:53 Temperature Pulse Rate 72 87 78 Respiratory Rate 16 18 11 L Blood Pressure 86/60 L 105/66 115/77 Pulse Oximetry 96 99 100 01/14/18 13:58 01/14/18 14:03 01/14/18 14:10 Temperature 97.5 F L 96.9 F L 97.3 F L Pulse Rate 76 82 72 Respiratory Rate 20 12 16 Blood Pressure 113/77 120/78 124/64 Pulse Oximetry 100 100 100 01/14/18 15:10 Temperature 97.6 F Pulse Rate 67 Respiratory Rate 16 Blood Pressure 121/72 Pulse Oximetry Oxygen Delivery Method Room Air Oxygen Flow Rate 0 Objective Labs Result Diagrams: 01/14/18 04:53 01/13/18 09:35 Labs: Laboratory Results - last 24 hr 01/13/18 01/14/18 09:35 04:53 WBC 3.5 L RBC 3.62 L Hgb 6.6 L* Hct 22.2 L MCV 61.5 L D MCH 18.3 L MCHC 29.8 L RDW 32.4 H Plt Count 273 Neut % (Auto) 56.3 Lymph % (Auto) 28.5 [place] % (Auto) 9.2 Eos % (Auto) 4.7 H Baso % (Auto) 1.3 Neut # (Auto) 2000 L RBC Morphology See below Dimorphic RBCs Yes Polychromasia 1+ H Hypochromasia 3+ H Poikilocytosis 1+ H Anisocytosis 3+ H Microcytosis 2+ H Crossmatch See Detail Discharge Plan Discharge Plan Patient Disposition: Home Discharge Med Rec/Prescriptions Prescriptions: New esomeprazole strontium 49.3 mg capsule,delayed release(DR/EC) 49.3 mg PO DAILY Qty: 30 RF: 0 ferrous sulfate 324 mg (65 mg iron) tablet,delayed release (DR/EC) 324 mg PO BID Qty: 60 RF: 0 Continue albuterol sulfate 90 mcg/actuation HFA aerosol inhaler 2 puff INHALATION ONCE PRN (Reason: shortness of breath) Qty: 18 RF: 3 levonorgestrel-ethinyl estrad 0.1-20 mg-mcg tablet 1 tab PO DAILY RF: 0 Discontinued tkctmic-arzalwsbdulhe-nmfddipv [Excedrin Extra Strength] 250-250-65 mg Tablet 1 tab PO PRN PRN (Reason: Migraine Headache) RF: 0 Follow up/Referrals: Rebecca Chiu PA-C [Primary Care Provider] - 1 Week Provider Discharge Instructions Diet: Diet as Tolerated Visit Report/Discharge Packet Stand Alone Forms: Colonoscopy Result, EGD Discharge Instructions Visit Report Forms: Stroke Signs & Symptoms Discharge Data Primary Care Provider: Rebecca Chiu Attending Provider: Sony Livingston Admit Date/Time: 01/13/18 11:39 Quality VTE Deep Vein Thrombosis/Pulmonary Embolism Present on Admission: No
== END 2018-01-14 17:40 | disposition home or self-care (01) ==
LOC: ED 11:15 → AC 11:39
PROVIDERS: Surgery; Admitting Provider Internal Medicine; Emergency Provider Emergency Medicine; PCP Physician Assistant; Visit Provider Internal Medicine
PROC: 0DJ08ZZ Inspection of Upper Intestinal Tract, Via Natural or Artificial Opening Endoscopic (ICD-10-PCS; CPT 43235; principal; 2018-01-14 13:30)
PROC: 0DJD8ZZ Inspection of Lower Intestinal Tract, Via Natural or Artificial Opening Endoscopic (ICD-10-PCS; CPT 45378; 2018-01-14 13:30)
DX: D50.9 Iron deficiency anemia, unspecified (principal); R71.8 Other abnormality of red blood cells; F84.5 Asperger's syndrome; K20.9 Esophagitis, unspecified; K44.9 Diaphragmatic hernia without obstruction or gangrene; R06.02 Shortness of breath
CPT/HCPCS: 43239; 45378; 36415; 36430; 80053; 82728; 83540; 83550; 85025; 85610; 85730; 86850; 86900; 86901; 88305; 99282; 99284; G0378; P9016; J2250; J2704; J3010

== ENCOUNTER → 2018-01-21 09:26 | Outpatient (CLI) | payer MEDICARE, MEDICAID, SELFPAY ==
[2018-01-13 12:47] VITALS: BMI 29.5
[2018-01-21 10:48] LABS: Hemoglobin 8.3 g/dL (12.0-16.0); Mean Corpuscular HGB Conc 29.7 % (30-36); Mean Corpuscular Hemoglobin 19.3 PG (26-34); Mean Corpuscular Volume 64.8 fL (80-100); Platelet Count 303 X10^3/uL (150-400); Red Blood Cell Count 4.33 X10^6/uL (4.0-5.2); Red Cell Distribution Width 35.8 % (11.6-14.8); White Blood Cell Count 4.3 X10^3/uL (4.5-11.0)
[2018-01-21 10:53] LABS: Add Manual Diff / Slide Review YES
[2018-01-21 11:25] LABS: Anisocytosis 4+; Neutrophils Absolute Manual 3139 /uL (3000-5900); Total Cells Counted 100
[2018-01-21 11:26] LABS: Hypochromasia 3+; Microcytosis 2+
[2018-01-21 11:27] LABS: Polychromasia 1+
[2018-01-21 11:29] LABS: Ovalocytes 1+; Tear Drop Cells 1+
== END ==
PROVIDERS: PCP Physician Assistant; Visit Provider Physician Assistant
DX: D64.9 Anemia, unspecified (principal)
CPT/HCPCS: 36415; 85025

== ENCOUNTER → 2018-02-03 10:38 | Outpatient (CLI) | payer MEDICARE, SELFPAY ==
[2018-01-13 12:47] VITALS: BMI 29.5
--- NOTE | 2018-02-03 10:42 | DI.RAD.S_ITS ---
PROCEDURE: XR CHEST 2V INDICATIONS: Chest pain; shortness of breath TECHNIQUE: 2 views of the chest were acquired. COMPARISON: [facility], CR, XR CHEST 2V, 01/12/2018, 16:23. FINDINGS: Surgical changes and devices: None. Lungs and pleura: No pleural effusions or pneumothorax. Lungs are clear. Large hiatal hernia, as before Mediastinum: Mediastinal contours are normal. Heart size is normal. Bones and chest wall: No suspicious bony abnormalities. Soft tissues appear unremarkable. IMPRESSION: No acute disease. Hiatal hernia as before. Dictated by: Roberto Mckee M.D. on 02/03/2018 at 12:12 Approved by: Roberto Mckee M.D. on 02/03/2018 at 12:21
[2018-02-03 11:34] LABS: Add Manual Diff / Slide Review NO; Basophils Percent Auto 0.6 % (0-2); Eosinophils Percent Auto 2.4 % (2-4); Hematocrit 35.9 % (36-46); Hemoglobin 11.3 g/dL (12.0-16.0); Lymphocytes Percent Auto 8.5 % (25-40); Mean Corpuscular HGB Conc 31.4 % (30-36); Mean Corpuscular Hemoglobin 23.3 PG (26-34); Mean Corpuscular Volume 74.1 fL (80-100); Monocytes Percent Auto 8.7 % (3-14); Neutrophils Absolute Auto 5500 /uL (3000-5900); Neutrophils Percent Auto 79.8 % (50-75); Platelet Count 323 X10^3/uL (150-400); Red Blood Cell Count 4.85 X10^6/uL (4.0-5.2); White Blood Cell Count 6.9 X10^3/uL (4.5-11.0)
[2018-02-03 11:58] LABS: B Type Natriuretic Peptide < 30.0 (<100)
[2018-02-03 12:25] LABS: Hypochromasia 3+
[2018-02-03 12:26] LABS: Anisocytosis 3+
[2018-02-03 12:32] LABS: HEMOLYSIS < 15 (0-50); Iron 103 ug/dL (37-170)
[2018-02-03 12:44] LABS: Percent Iron Saturation 17 % (15-50); Total Iron Binding Capacity 614 ug/dL (265-497); Transferrin 548 mg/dL (206-381)
[2018-02-03 13:07] LABS: Ferritin 9.8 ng/mL (6.27-137)
== END ==
PROVIDERS: PCP Physician Assistant; Visit Provider Physician Assistant
DX: D50.9 Iron deficiency anemia, unspecified (principal); R06.09 Other forms of dyspnea; R07.9 Chest pain, unspecified
CPT/HCPCS: 36415; 71046; 82728; 83540; 83550; 83880; 85025

== ENCOUNTER → 2018-08-11 13:26 | Outpatient (CLI) | payer MEDICARE, SELFPAY ==
[2018-03-12 14:13] VITALS: BMI 29.5
--- NOTE | 2018-08-11 15:38 | DIET.PN ---
Met for initial nutrition consultation. Lalo arrives with her grandma and fiance. Family are along to help interpret information as Lalo has autism and is easily overwhelmed.Lalo reports frequent stomach aches and can tell when a food is not doing well, though unable to pinpoint specific foods with any consistency. Also reports problems with hypoglycemia, though never been diagnosed with this. Usual diet: Lalo brought a small book with about a week of food records along with several other notes. Food record shows pt eats very frequently through the day, often one item at a time vs a meal. 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 Trying to include more whole food. Exercise: walks, runs and swims competitively. GI: freq stomach aches, denies diarrhea/constipation, bloating. +Heartburn if doesn't take her Rolaids. Dx: Fe def anemia, obesity Assessment: Very difficult to pinpoint problems as conversation was all over the place. Torrey doesn't think pt has low bg; maybe it's fabricated, fiance supportive and trying to interject suggestions. Doesn't seem to have symptoms of IBS; does appear to have GERD. Appears to eat too large of portions - will eat 3 whole avocados at once. Intervention: Provided ed on hypoglycemia diet (balanced meals with 1-2 small snacks, avoid sugar) and ed on GERD diet and lifestyle modifications. Provided ed on connection between mind and GI tract. Plan: pt to avoid foods that aggravate GERD, to raise HOB up and not eat within 2 hours of laying down. Encouraged to eat meals vs grazing. F/u in few weeks to assess results of GERD diet and try to narrow down any other offenders.
== END ==
PROVIDERS: PCP Physician Assistant; Visit Provider Registered Nurse
DX: D50.9 Iron deficiency anemia, unspecified (principal); E66.9 Obesity, unspecified
CPT/HCPCS: 97802

== ENCOUNTER → 2018-09-02 08:47 | Outpatient (CLI) | payer MEDICARE, SELFPAY ==
[2018-03-12 14:13] VITALS: BMI 29.5
--- NOTE | 2018-09-02 09:01 | DIET.PN ---
RD f/u for obesity and iron deficiency anemia Pt reports doing 80% better, doesn't want to eat junk. 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 Reports having lost 5# in last month from eating better and being more active at work. Usual intake includes: B: tuna packet c 1/2 avocado or haitian muffin c 4 eggs and a banana L: Imitation crab c cheese stick or a couple oranges D: Small 1/2 c pasta or lentils c chicken and spinach Tends to eat the same 15 foods. Does not eat foods with long ingredients list. Headed to store to purchase tuna, blueberries, avocado because they are on sale. Pt has limited budget so cannot afford beef or thomas to help increase iron stores, avoids tomato products r/t GERD, takes iron supp as directed 6 of 7 d/week, however. Intervention: Pt interested in problem solving her trip to [place]. Flying to [facility] for 7 days, staying in hotel c no continental breakfast or room refrigeration. Does not want to eat crap. Collaborated c pt on strategies for healthy eating on the go. Pack a healthy meal to eat before getting on plane will stop at grocery store once checked into hotel and will buy: tuna packets, carrots, mandarin oranges, bananas, almonds, water, apple juice (4oz at a time). Pt will call to schedule f/u before wedding if needed.
== END ==
PROVIDERS: PCP Physician Assistant; Visit Provider Registered Nurse
DX: D50.9 Iron deficiency anemia, unspecified (principal); E66.9 Obesity, unspecified
CPT/HCPCS: 97803

== ENCOUNTER 2019-06-15 09:47 | Emergency (ER) | payer MEDICARE, SELFPAY ==
[2019-03-17 08:18] VITALS: BMI 29.5
[2019-06-15 09:50] VITALS: BP 162/96; PULSE 107; RESP 16; TEMP 37.9; O2SAT 100; BMI 33.6
--- NOTE | 2019-06-15 09:50 | ED.CHESTPAIN ---
HPI - Chest Pain General Chief Complaint: Upper Respiratory Symptoms Stated Complaint: Chest pain, cough Time Seen by Provider: 06/15/19 09:48 Source: patient Mode of arrival: Ambulatory Limitations: no limitations History of Present Illness HPI narrative: This is a 33-year-old female who comes to the emergency department with complaint of chest pain and cough that is been present for a week. Patient states she has not a fever although her temperature is a 100.2? F here in the department. Patient states that the chest pain is very mild had centralized. She has had a nonproductive cough. She was feeling okay until today and then felt more ?crappy.? Patient has not had any syncope. She has not had any shortness of breath except for today. She has not had any nausea, no vomiting, she had diarrhea 1 time a week ago. No other GI or urinary symptoms. She does have a history of iron deficiency anemia and it was low enough in the past require blood transfusion. She currently takes oral contraceptives but denies any other daily medications. She denies other medical issues. She denies tobacco, positive for alcohol, no illicit. She does work at [employer] and has had other coworkers who have been ill recently. Patient is concerned about returning to to work at [employer] and requesting to be off until July 11 which is 3 weeks from now. Related Data Home Medications Medication Instructions Recorded Confirmed ferrous sulfate 325 mg (65 mg 325 mg PO DAILY tab 03/05/18 03/18/19 iron) tablet Previous Rx's Medication Instructions Recorded albuterol sulfate 90 mcg/actuation 2 puff INHALATION ONCE PRN #18 gram 12/29/17 aerosol inhaler esomeprazole strontium 49.3 mg 49.3 mg PO DAILY #30 cap 04/08/18 capsule,delayed release levonorgestrel-ethinyl estradiol 1 tab PO DAILY #84 tab 08/04/18 0.1 mg-20 mcg tablet Allergies Allergy/AdvReac Type Severity Reaction Status Date / Time No Known Drug Allergies Allergy Verified 06/15/19 09:55 Review of Systems Review of Systems ROS Unobtainable: All systems reviewed & are unremarkable except as noted in HPI and below Patient History Medical History Asperger's disorder (Chronic 07/01/11) Insomnia (Chronic) Obstructive sleep apnea of adult (Chronic) Snoring (Chronic) Surgical History History of third molar tooth extraction Social History household members: family Smoking Status: Never smoker second hand exposure: Yes (sometimes at work.) alcohol intake: current substance use type: does not use Smoking Status: Never smoker alcohol intake frequency: 0-2 drinks per day Substance Use Type: does not use Exam Narrative Exam Narrative: GEN: well nourished, well appearing female, alert and oriented x 3, patient appears to be in mild distress. HEENT: Atraumatic, pupils are equal round reactive to light, extraocular movements are intact, nares are clear, TMs are clear with no fluid, there is no conjunctival pallor. Throat is clear without any exudates, erythema, tonsillar enlargement or uvular deviation HEART: Regular rate and rhythm without murmur, clicks, rubs. No carotid bruits, pulses are equal in upper and lower extremities LUNGS:Lungs clear to auscultation, no wheezes, rales, crackles, chest moves symmetrically, no tachypnea accessory muscle use. Patient is able to speak in full sentences without any issue and is verbose. ABD:bowel sounds normal, soft, non-tender, no guarding, rebound, rigidity, no masses noted, no hepatosplenomegaly MSCL: Non-tender, no muscle atrophy, normal gait NEURO:CN 2-12 intact, sensation normal Initial Vital Signs Initial Vital Signs: Vital Signs Temperature 100.2 F H 06/15/19 09:50 Pulse Rate 107 H 06/15/19 09:50 Respiratory Rate 16 06/15/19 09:50 Blood Pressure 162/96 H 06/15/19 09:50 Pulse Oximetry 100 06/15/19 09:50 Course Orders Ordered: ED Orders 06/15/19 10:00 Complete Blood Count AUTO DIFF Stat Comprehensive Metabolic Panel Stat 06/15/19 10:07 XR chest 1V Stat Vital Signs Vital signs: Vital Signs - 8 hr 06/15/19 09:50 Temperature 100.2 F H Pulse Rate 107 H Respiratory Rate 16 Blood Pressure 162/96 H Pulse Oximetry 100 MDM - Chest Pain Lab Data Attestation: I reviewed the patient's lab results. Result diagrams: 06/15/19 10:00 06/15/19 10:00 Labs: Lab Results 06/15/19 06/15/19 Range/Units 10:00 10:00 WBC 4.2 L (4.5-11.0) X10^3/uL RBC 4.35 (4.0-5.2) X10^6/uL Hgb 11.7 L (12.0-16.0) g/dL Hct 36.0 (36-46) % MCV 82.6 (80-100) fL MCH 26.9 (26-34) PG MCHC 32.6 (30-36) % RDW 13.3 (11.6-14.8) % Plt Count 244 (150-400) X10^3/uL Neut % (Auto) 72.2 (50-75) % Lymph % (Auto) 14.6 L (25-40) % [place] % (Auto) 7.0 (3-14) % Eos % (Auto) 5.4 H (2-4) % Baso % (Auto) 0.8 (0-2) % Neut # (Auto) 3000 (5177-1076) /uL Lymph # (Auto) 600 L (4721-2774) /uL [place] # (Auto) 300 (0-900) /uL Eos # (Auto) 200 (0-450) /uL Baso # (Auto) 0 (0-100) /uL Sodium 138 (137-145) mmol/L Potassium 4.2 (3.4-5.1) mmol/L Chloride 108 H (98-107) mmol/L Carbon Dioxide 21 L (22-32) mmol/L BUN 18 H (7-17) mg/dL Creatinine 0.72 (0.52-1.04) mg/dL Estimated GFR > 60.0 (>60) mL/min BUN/Creatinine Ratio 25.0 H (6-22) Glucose 118 H (70-100) mg/dL Calcium 9.0 (8.4-10.2) mg/dL Total Bilirubin 0.2 (0.2-1.3) mg/dL AST 21 (14-36) IU/L ALT 14 (<35) IU/L Alkaline Phosphatase 56 (38-126) U/L Total Protein 7.6 (6.3-8.2) g/dL Albumin 4.1 (3.5-5.0) g/dL Globulin 3.5 (1.7-4.1) g/dL Albumin/Globulin Ratio 1.2 (1.0-2.8) Imaging Data Chest x-ray: Radiologist's Impression: [place] [id number] [place] [id number] XRay Report Signed Patient: Lalo Pineda MMR#: [id number] : 1985Acct:[id number] Age/Sex: 33 / FDate of Service: 06/15/19 Loc: ED Accession Number: [id number] Procedure: XR chest 1V Ordering Provider: Michaela Mooney D.O. PROCEDURE: XR CHEST 1V INDICATIONS: flu-like symptoms TECHNIQUE: One view of the chest was acquired. COMPARISON: [facility], , XR CHEST 2V, 02/03/2018, 11:11. FINDINGS: Surgical changes and devices: None. Lungs and pleura: Lungs are clear. No pleural effusions or pneumothorax. Mediastinum: Moderate hiatal hernia. Mediastinal contours are otherwise appear normal. Heart size is normal. Bones and chest wall: No suspicious bony lesions. Overlying soft tissues appear unremarkable. IMPRESSION: 1. Hiatal hernia. 2. No acute process. Dictated by: Geraldine Valadez M.D. on 06/15/2019 at 10:41 Approved by: Geraldine Valadez M.D. on 06/15/2019 at 10:42 ECG Data Attestation: I personally reviewed and interpreted this ECG as follows: Prior ECG tracings: available for review Interpretation: Sinus rhythm rate of 99 P are 177 QRS 89 and QTC of 396. No ST elevation depression appreciated. Prior available for review 06/08/08. [facility] Narrative Medical decision making narrative: Patient's chest x-ray is negative, her vital signs she does have temperature of a 100.2? F but otherwise normal vital signs. Patient does not have any signs of respiratory distress. 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 Testing was sent and patient was informed that it will be 2-3 days for results to return. Her labs show hemoglobin of 11.7 down from 13 in November 2018. Patient has known iron deficiency anemia in the past and does not sound like she is taking iron regularly she was following with Oncology and was encouraged to continue to follow with them if they feel it is appropriate. Electrolytes sodium potassium are normal chloride 108 with a CO2 of 21 and a BUN of 18. Her renal function is normal with normal LFTs.. Discharge Plan Departure Patient Disposition: Home Clinical Impression: Suspected 2019 novel coronavirus infection Discharge Date/Time: 06/15/19 11:27 Activity Restrictions/Additional Instructions: *You have been diagnosed with suspected coronavirus infection, which based on your symptoms. Your coronavirus test is pending and will likely result in the next 2-3 days. Your hemoglobin today is 11.7. This is slightly decreased from November but significantly improved from your priors in 2018. I would recommend that you continue to follow with hematology or your primary care to monitor your hemoglobin or blood count intermittently. *What to do: * per recommendations from the CDC and the [facility] Department of Health * stay home except to get medical care. Restrict activities outside your home, except for getting medical care. Do not go to work, school, or public areas. Avoid using public transportation, ride sharing, or taxis. * separate yourself from other people in your home. * call ahead before visiting your doctor * Wear a face mask * Cover your coughs and sneezes * Clean your hands often * Avoid sharing household items * Clean all high-touch services every day * Monitor your symptoms and seek prompt medical attention if your illness is worsening, particularly with difficulty in breathing. Discussed continuing home isolation * for individuals with symptoms who are confirmed or suspected cases of COVID-19 and are directed to care for themselves at home, discontinue home isolation under the following conditions: 1. At least 72 hours have passed since recovery, defined as resolution of fever without the use of fever reducing medications, and improvement in respiratory symptoms (cough, shortness of breath) AND, 2. At least 7 days have passed since symptoms 1st appeared Individuals with laboratory confirmed COVID-19 who have not had any symptoms may discontinue home isolation when at least 7 days have passed since the date of their 1st COVID-19 diagnostic test and have had no subsequent illness Prescriptions: No Action albuterol sulfate 90 mcg/actuation HFA aerosol inhaler 2 puff INHALATION ONCE PRN (Reason: shortness of breath) Qty: 18 RF: 3 ferrous sulfate 325 mg (65 mg iron) tablet 325 mg PO DAILY RF: 0 esomeprazole strontium 49.3 mg capsule,delayed release(DR/EC) 49.3 mg PO DAILY Qty: 30 RF: 1 levonorgestrel-ethinyl estrad 0.1-20 mg-mcg tablet 1 tab PO DAILY Qty: 84 RF: 3 Referrals: Kenzie Courtney MD [Primary Care Provider] - Stand Alone Forms: Work Release Note
--- NOTE | 2019-06-15 10:07 | DI.RAD.S_ITS ---
PROCEDURE: XR CHEST 1V INDICATIONS: flu-like symptoms TECHNIQUE: One view of the chest was acquired. COMPARISON: [facility], CR, XR CHEST 2V, 02/03/2018, 11:11. FINDINGS: Surgical changes and devices: None. Lungs and pleura: Lungs are clear. No pleural effusions or pneumothorax. Mediastinum: Moderate hiatal hernia. Mediastinal contours are otherwise appear normal. Heart size is normal. Bones and chest wall: No suspicious bony lesions. Overlying soft tissues appear unremarkable. IMPRESSION: 1. Hiatal hernia. 2. No acute process. Dictated by: Geraldine Valadez M.D. on 06/15/2019 at 10:41 Approved by: Geraldine Valadez M.D. on 06/15/2019 at 10:42
[2019-06-15 10:33] LABS: Add Manual Diff / Slide Review NO; Basophils Absolute Auto 0 /uL (0-100); Basophils Percent Auto 0.8 % (0-2); Eosinophils Absolute Auto 200 /uL (0-450); Eosinophils Percent Auto 5.4 % (2-4); Hemoglobin 11.7 g/dL (12.0-16.0); Lymphocytes Absolute Auto 600 /uL (1100-4500); Lymphocytes Percent Auto 14.6 % (25-40); Mean Corpuscular HGB Conc 32.6 % (30-36); Mean Corpuscular Hemoglobin 26.9 PG (26-34); Mean Corpuscular Volume 82.6 fL (80-100); Monocytes Absolute Auto 300 /uL (0-900); Neutrophils Absolute Auto 3000 /uL (1500-7000); Neutrophils Percent Auto 72.2 % (50-75); Platelet Count 244 X10^3/uL (150-400); Red Blood Cell Count 4.35 X10^6/uL (4.0-5.2); Red Cell Distribution Width 13.3 % (11.6-14.8); White Blood Cell Count 4.2 X10^3/uL (4.5-11.0)
--- NOTE | 2019-06-15 10:35 | PC.NURSE ---
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 able to tolerated po fluids.
[2019-06-15 10:50] LABS: Alanine Aminotransferase 14 IU/L (<35); Albumin 4.1 g/dL (3.5-5.0); Albumin Globulin Ratio 1.2 (1.0-2.8); Alkaline Phosphatase 56 U/L (38-126); Aspartate Aminotransferase 21 IU/L (14-36); Bilirubin Total 0.2 mg/dL (0.2-1.3); Blood Urea Nitrogen 18 mg/dL (7-17); Carbon Dioxide 21 mmol/L (22-32); Chloride 108 mmol/L (98-107); Estimated Glomerular Filt Rate > 60.0 mL/min (>60); Globulin 3.5 g/dL (1.7-4.1); Glucose 118 mg/dL (70-100); HEMOLYSIS < 15 (0-50); Potassium 4.2 mmol/L (3.4-5.1); Sodium 138 mmol/L (137-145); Total Protein 7.6 g/dL (6.3-8.2)
[2019-06-18 08:23] LABS: COVID19 Sendout Not Detected (Not Detected)
== END 2019-06-15 11:27 | disposition home or self-care (01) ==
PROVIDERS: Emergency Provider Emergency Medicine; PCP Internal Medicine
DX: Z03.818 Encounter for observation for suspected exposure to other biological agents ruled out (principal); R05 Cough; R50.9 Fever, unspecified; R07.9 Chest pain, unspecified; R68.89 Other general symptoms and signs
CPT/HCPCS: 36415; 71045; 80053; 85025; 87635; 93005; 99284

== ENCOUNTER → 2020-04-24 13:03 | Outpatient (CLI) | payer MEDICARE, SELFPAY ==
[2019-03-17 08:18] VITALS: BMI 29.5
[2020-04-24 13:37] LABS: Add Manual Diff / Slide Review NO; Basophils Absolute Auto 0 /uL (0-100); Basophils Percent Auto 0.9 % (0-2); Eosinophils Absolute Auto 200 /uL (0-450); Eosinophils Percent Auto 4.3 % (2-4); Lymphocytes Absolute Auto 700 /uL (1100-4500); Mean Corpuscular HGB Conc 27.8 % (30-36); Mean Corpuscular Volume 57.3 fL (80-100); Monocytes Absolute Auto 300 /uL (0-900); Neutrophils Absolute Auto 2600 /uL (1500-7000); Neutrophils Percent Auto 67.8 % (50-75); Platelet Count 302 X10^3/uL (150-400); Red Blood Cell Count 3.65 X10^6/uL (4.0-5.2); Red Cell Distribution Width 22.3 % (11.6-14.8); White Blood Cell Count 3.8 X10^3/uL (4.5-11.0)
[2020-04-24 13:51] LABS: Alanine Aminotransferase 14 IU/L (<35); Albumin 4.2 g/dL (3.5-5.0); Albumin Globulin Ratio 1.3 (1.0-2.8); Alkaline Phosphatase 62 U/L (38-126); Aspartate Aminotransferase 18 IU/L (14-36); BUN Creatinine Ratio 16.7 (6-22); Bilirubin Total 0.2 mg/dL (0.2-1.3); Blood Urea Nitrogen 12 mg/dL (7-17); Calcium 8.8 mg/dL (8.4-10.2); Carbon Dioxide 22 mmol/L (22-32); Chloride 103 mmol/L (98-107); Estimated Glomerular Filt Rate > 60.0 mL/min (>60); Globulin 3.3 g/dL (1.7-4.1); Glucose 126 mg/dL (70-100); HEMOLYSIS < 15 (0-50); Potassium 3.5 mmol/L (3.4-5.1); Sodium 133 mmol/L (137-145); Total Protein 7.5 g/dL (6.3-8.2)
[2020-04-24 14:18] LABS: Hemoglobin 5.8 g/dL (12.0-16.0)
[2020-04-24 14:19] LABS: HEMOLYSIS < 15 (0-50); Hematocrit 20.9 % (36-46); Iron 11 ug/dL (37-170)
[2020-04-24 14:24] LABS: Ferritin 3 ng/mL (6-137)
[2020-04-24 14:30] LABS: Percent Iron Saturation 2 % (15-50); Total Iron Binding Capacity 633 ug/dL (265-497); Transferrin 567 mg/dL (206-381)
[2020-04-24 14:31] LABS: Platelet Estimate Adequate on smear
[2020-04-24 14:32] LABS: Anisocytosis 2+; Hypochromasia 3+; Microcytosis 3+; Ovalocytes 2+; Poikilocytosis 1+
[2020-04-24 14:54] LABS: Folate 18.9 ng/mL (2.76-20.0); Vitamin B12 497 pg/mL (239-931)
== END ==
PROVIDERS: PCP Internal Medicine; Referring Provider Internal Medicine; Visit Provider Internal Medicine
DX: R06.00 Dyspnea, unspecified (principal); R07.1 Chest pain on breathing
CPT/HCPCS: 36415; 80053; 82607; 82728; 82746; 83540; 83550; 85025

== ENCOUNTER 2020-04-24 17:32 | Emergency (ER) | payer MEDICARE, SELFPAY ==
[2019-03-17 08:18] VITALS: BMI 29.5
[2020-04-24] VITALS (21 sets, daily range): BP systolic 127–168; BP diastolic 68–89; PULSE 81–112; RESP 12–20; TEMP 36.1–37; O2SAT 98–100; BMI 44.2
--- NOTE | 2020-04-24 18:32 | ED.RECABL ---
HPI - Recheck/Abnormal Lab/Rx General Chief Complaint: Recheck/Abnormal Lab/Rx Stated Complaint: Low Iron Time Seen by Provider: 04/24/20 18:32 Source: patient Mode of arrival: Ambulatory History of Present Illness HPI narrative: 34-year-old woman with Asperger's disorder and a long history of iron deficiency anemia presents after being instructed her by her primary care physician that her H&H were dangerously low. Apparently she had been seen by Kenzie courtney complaining of exertional dyspnea and chest pain at peak exertion. She had similar complaints about 3 years ago was found to have a significant microcytic anemia. She was admitted to the hospital at that time, transfused 2 units of packed red blood cells. She had an upper and lower endoscopy that did not show any evidence of her bleeding source. She is on oral control pills and has very like to almost no menstrual bleeding. She has been seen by electrical construction project manager and found to have poor iron absorption. She received iron supplementation for a number of years however that electrical construction project manager has not been available for about a year and half and she has not been any additional follow-up. Specifically she states she has had no change in bowel or bladder. She has had no bloody emesis and no black stools. She complains of no abdominal pain, palpitations, increased lower extremity edema. She does note that she has been increasingly fatigued over the last weeks to months. H/H yesterday were 5.8 and 20.9 with her MCV at 57.3 Related Data Home Medications Medication Instructions Recorded Confirmed ferrous sulfate 325 mg (65 mg 325 mg PO DAILY tab 03/05/18 03/18/19 iron) tablet Previous Rx's Medication Instructions Recorded albuterol sulfate 90 mcg/actuation 2 puff INHALATION ONCE PRN #18 gram 12/29/17 aerosol inhaler esomeprazole strontium 49.3 mg 49.3 mg PO DAILY #30 cap 04/08/18 capsule,delayed release levonorgestrel-ethinyl estradiol 1 tab PO DAILY #28 tab 03/31/20 0.1 mg-20 mcg tablet ascorbic acid (vitamin C) [Vitamin 125 mg PO TID #90 tab 04/24/20 C] ferrous gluconate 324 mg PO TID #90 tab 04/24/20 polyethylene glycol 3350 [Miralax] 17 g PO DAILY #100 ea 04/24/20 Allergies Allergy/AdvReac Type Severity Reaction Status Date / Time No Known Drug Allergies Allergy Verified 06/15/19 09:55 Review of Systems Review of Systems ROS Unobtainable: All systems reviewed & are unremarkable except as noted in HPI and below Patient History Medical History Asperger's disorder (07/01/11) Insomnia Iron deficiency anemia Obstructive sleep apnea of adult Snoring Surgical History History of third molar tooth extraction Social History household members: family Smoking Status: Never smoker second hand exposure: Yes (sometimes at work.) alcohol intake: current substance use type: does not use Smoking Status: Never smoker alcohol intake frequency: 0-2 drinks per day Substance Use Type: does not use Exam Narrative Exam Narrative: General: Healthy appearing, in no acute distress. Well-nourished well-developed HEENT: Moist mucous membranes, normal sclera with reactive pupils, Neck: No JVD, supple Respiratory: Lungs are clear to auscultation, no wheezing no rales no rhonchi. Full and symmetrical air movement Cardiac: Tachycardic at rest with Regular rate and rhythm no murmurs no bruits Abdomen: Soft, nontender, good bowel tones, no flank pain Skin: Warm and dry, no rashes Neurologic: Grossly neurologically intact with no obvious asymmetries or abnormalities Extremities: No trauma, well perfused Psych: Cooperative, tangential and difficult to focus but no pressured speech Initial Vital Signs Initial Vital Signs: Vital Signs Temperature 97.0 F L 04/24/20 17:38 Pulse Rate 112 H 04/24/20 17:38 Respiratory Rate 18 04/24/20 17:38 Blood Pressure 168/89 H 04/24/20 17:38 Pulse Oximetry 98 04/24/20 17:38 Course Orders Ordered: ED Orders 04/24/20 19:03 Partial Thromboplastin Time Stat Prothrombin Time INR Stat Discontinued Medications Acetaminophen (Acetaminophen 325 Mg Tablet) 975 mg PO NOW ONE Stop: 04/24/20 18:48 Last Admin: 04/24/20 19:41 Dose: 975 mg Documented by: LOPEZ Diphenhydramine HCl (Diphenhydramine 50 Mg/Ml Vial) 25 mg IV NOW ONE Stop: 04/24/20 18:48 Last Admin: 04/24/20 19:42 Dose: 25 mg Documented by: LOPEZ Vital Signs Vital signs: Vital Signs - 8 hr 04/24/20 20:03 04/24/20 20:04 04/24/20 20:37 Temperature 97.7 F 97 F L Pulse Rate 103 H 102 H 85 Respiratory Rate 16 20 Blood Pressure 143/79 H 143/79 H 142/82 H Pulse Oximetry 100 04/24/20 20:38 04/24/20 20:40 04/24/20 21:00 Temperature Pulse Rate 85 82 Respiratory Rate Blood Pressure 142/82 H Pulse Oximetry 100 100 100 04/24/20 21:36 04/24/20 21:46 04/24/20 21:47 Temperature 97.8 F Pulse Rate 81 85 85 Respiratory Rate 12 Blood Pressure 130/69 130/69 Pulse Oximetry 100 100 04/24/20 21:49 04/24/20 22:00 04/24/20 22:06 Temperature 97.8 F Pulse Rate 83 84 91 H Respiratory Rate 12 Blood Pressure 130/69 128/84 136/80 Pulse Oximetry 100 100 04/24/20 22:15 04/24/20 22:30 04/24/20 23:00 Temperature Pulse Rate 86 82 85 Respiratory Rate Blood Pressure 131/68 136/70 135/68 Pulse Oximetry 100 100 99 04/24/20 23:15 04/24/20 23:19 04/24/20 23:30 Temperature 98.6 F Pulse Rate 93 H 89 91 H Respiratory Rate 17 Blood Pressure 128/71 128/71 Pulse Oximetry 100 99 04/24/20 23:34 04/24/20 23:37 Temperature 98.1 F Pulse Rate 95 H Respiratory Rate Blood Pressure 127/83 Pulse Oximetry 99 MDM - Recheck/Abnormal Lab/Rx Medical Records Attestation: I reviewed the patient's medical records. Lab Data Attestation: I reviewed the patient's lab results. Result diagrams: 04/24/20 18:05 04/24/20 18:05 Labs: Lab Results 04/24/20 04/24/20 04/24/20 Range/Units 18:05 18:05 18:05 WBC 4.7 (4.5-11.0) X10^3/uL RBC 3.48 L (4.0-5.2) X10^6/uL Hgb 5.5 L* (12.0-16.0) g/dL Hct 20.5 L* (36-46) % MCV 58.9 L (80-100) fL MCH 15.8 L (26-34) PG MCHC 26.9 L (30-36) % RDW 23.7 H (11.6-14.8) % Plt Count 309 (150-400) X10^3/uL Neut % (Auto) 73.6 (50-75) % Lymph % (Auto) 17.6 L (25-40) % [place] % (Auto) 5.7 (3-14) % Eos % (Auto) 2.5 (2-4) % Baso % (Auto) 0.6 (0-2) % Neut # (Auto) 3400 (7847-1283) /uL Lymph # (Auto) 800 L (3922-1653) /uL [place] # (Auto) 300 (0-900) /uL Eos # (Auto) 100 (0-450) /uL Baso # (Auto) 0 (0-100) /uL RBC Morphology See below Hypochromasia 2+ H Poikilocytosis 1+ H Anisocytosis 2+ H Microcytosis 3+ H Ovalocytes 2+ H PT (10.1-12.7) SECONDS INR (0.9-1.3) APTT (26.4-36.2) SECONDS Sodium 131 L (137-145) mmol/L Potassium 4.2 (3.4-5.1) mmol/L Chloride 103 (98-107) mmol/L Carbon Dioxide 20 L (22-32) mmol/L BUN 12 (7-17) mg/dL Creatinine 0.62 (0.52-1.04) mg/dL Estimated GFR > 60.0 (>60) mL/min BUN/Creatinine Ratio 19.4 (6-22) Glucose 155 H (70-100) mg/dL Calcium 8.7 (8.4-10.2) mg/dL Total Bilirubin 0.2 (0.2-1.3) mg/dL AST 21 (14-36) IU/L ALT 13 (<35) IU/L Alkaline Phosphatase 60 (38-126) U/L Total Protein 6.9 (6.3-8.2) g/dL Albumin 4.1 (3.5-5.0) g/dL Globulin 2.8 (1.7-4.1) g/dL Albumin/Globulin Ratio 1.5 (1.0-2.8) Blood Type A Positive Antibody Screen Negative Crossmatch See Detail 04/24/20 Range/Units 19:03 WBC (4.5-11.0) X10^3/uL RBC (4.0-5.2) X10^6/uL Hgb (12.0-16.0) g/dL Hct (36-46) % MCV (80-100) fL MCH (26-34) PG MCHC (30-36) % RDW (11.6-14.8) % Plt Count (150-400) X10^3/uL Neut % (Auto) (50-75) % Lymph % (Auto) (25-40) % [place] % (Auto) (3-14) % Eos % (Auto) (2-4) % Baso % (Auto) (0-2) % Neut # (Auto) (9355-8109) /uL Lymph # (Auto) (8965-1378) /uL [place] # (Auto) (0-900) /uL Eos # (Auto) (0-450) /uL Baso # (Auto) (0-100) /uL RBC Morphology Hypochromasia Poikilocytosis Anisocytosis Microcytosis Ovalocytes PT 12.0 (10.1-12.7) SECONDS INR 1.0 (0.9-1.3) APTT 25 L (26.4-36.2) SECONDS Sodium (137-145) mmol/L Potassium (3.4-5.1) mmol/L Chloride (98-107) mmol/L Carbon Dioxide (22-32) mmol/L BUN (7-17) mg/dL Creatinine (0.52-1.04) mg/dL Estimated GFR (>60) mL/min BUN/Creatinine Ratio (6-22) Glucose (70-100) mg/dL Calcium (8.4-10.2) mg/dL Total Bilirubin (0.2-1.3) mg/dL AST (14-36) IU/L ALT (<35) IU/L Alkaline Phosphatase (38-126) U/L Total Protein (6.3-8.2) g/dL Albumin (3.5-5.0) g/dL Globulin (1.7-4.1) g/dL Albumin/Globulin Ratio (1.0-2.8) Blood Type Antibody Screen Crossmatch Point of Care Testing Test Results Negative Urine Dip Bedside Urine Glucose Negative Bedside Urine Bilirubin - Negative Bedside Urine Ketone - Negative Urine Specific [place] 1.010 Bedside Urine Occult Blood - Negative Bedside Urine pH 7.0 Bedside Urine Protein - Negative Bedside Urine Urobilinogen - Negative Bedside Urine Nitrite - Negative Bedside Urine Leukocytes - Negative Esterase MDM Narrative Medical decision making narrative: 34-year-old woman with recurrent symptomatic iron deficiency anemia. Prior EGD and colonoscopy did not reveal a GI source and she has minimal to no menstrual cycle to suggest menorrhagia as a source. She has not been taking iron supplementations recently. She had been seen by a electrical construction project manager until approximately a year and half ago. Blood work done yesterday indicates low iron, high TIBC, low saturation high transferrin, low ferritin and normal B12 and folic acid levels. With her hemoglobin of 5.5, increasing fatigue, baseline resting tachycardia and exertional dyspnea with chest pain will opt to transfuse her with 2 units of packed blood cells in the emergency room, suggest iron supplementation on discharge and follow-up with heme Onc. After 2 unit transfusion, patient is feeling significantly better she tolerated the transfusions without difficulty. She is safe for home discharge Discharge Plan Departure Patient Disposition: Home Clinical Impression: Iron deficiency anemia Qualifiers: Iron deficiency anemia type: other iron deficiency Qualified Code(s): D50.8 - Other iron deficiency anemias Instructions: DI for Iron Deficiency Anemia-Adult Activity Restrictions/Additional Instructions: Thank you for coming in today You received 2 units of packed blood cells for your severe, recurrent iron deficiency anemia. This should give you quite a bit more energy and make it much easier to not be short of breath or have any chest pain with you are walking around [facility] You need to increase your iron supplementation. Iron is best absorbed in an acidic environment, so please take it 3 times a day along with a vitamin c supplement. Unfortunatley, the dosing needs to be spread out during the day to be best absorbed so taking care to remember the 3 times/day dose is very important. Iron will also make you quite constipated so I am also going to recommend a dose of MiraLax every day to avoid the constipation. Prescriptions for the a different form of iron, vitamin-C as well as the MiraLax have all been electronically transmitted to [facility] for you to supervisor opening and picking tomorrow Please make sure you follow-up with Dr. Courtney and she will very likely have you schedule an appointment with a electrical construction project manager as an outpatient Prescriptions: New ferrous gluconate 324 mg (38 mg iron) tablet 324 mg PO TID Qty: 90 RF: 2 ascorbic acid (vitamin C) [Vitamin C] 125 mg tablet,chewable 125 mg PO TID Qty: 90 RF: 2 polyethylene glycol 3350 [Miralax] 17 gram powder in packet 17 g PO DAILY Qty: 100 RF: 2 No Action albuterol sulfate 90 mcg/actuation HFA aerosol inhaler 2 puff INHALATION ONCE PRN (Reason: shortness of breath) Qty: 18 RF: 3 ferrous sulfate 325 mg (65 mg iron) tablet 325 mg PO DAILY RF: 0 esomeprazole strontium 49.3 mg capsule,delayed release(DR/EC) 49.3 mg PO DAILY Qty: 30 RF: 1 levonorgestrel-ethinyl estrad 0.1-20 mg-mcg tablet 1 tab PO DAILY Qty: 28 RF: 0 Referrals: Kenzie Courtney MD [Primary Care Provider] -
[2020-04-24 18:34] LABS: Add Manual Diff / Slide Review NO; Basophils Absolute Auto 0 /uL (0-100); Basophils Percent Auto 0.6 % (0-2); Eosinophils Absolute Auto 100 /uL (0-450); Eosinophils Percent Auto 2.5 % (2-4); Lymphocytes Absolute Auto 800 /uL (1100-4500); Lymphocytes Percent Auto 17.6 % (25-40); Mean Corpuscular HGB Conc 26.9 % (30-36); Mean Corpuscular Hemoglobin 15.8 PG (26-34); Mean Corpuscular Volume 58.9 fL (80-100); Monocytes Absolute Auto 300 /uL (0-900); Monocytes Percent Auto 5.7 % (3-14); Neutrophils Absolute Auto 3400 /uL (1500-7000); Neutrophils Percent Auto 73.6 % (50-75); Platelet Count 309 X10^3/uL (150-400); Red Blood Cell Count 3.48 X10^6/uL (4.0-5.2); Red Cell Distribution Width 23.7 % (11.6-14.8); White Blood Cell Count 4.7 X10^3/uL (4.5-11.0)
[2020-04-24 18:36] LABS: Hemoglobin 5.5 g/dL (12.0-16.0)
[2020-04-24 18:37] LABS: Hematocrit 20.5 % (36-46)
[2020-04-24 18:46] LABS: Alanine Aminotransferase 13 IU/L (<35); Albumin 4.1 g/dL (3.5-5.0); Albumin Globulin Ratio 1.5 (1.0-2.8); Alkaline Phosphatase 60 U/L (38-126); Aspartate Aminotransferase 21 IU/L (14-36); BUN Creatinine Ratio 19.4 (6-22); Bilirubin Total 0.2 mg/dL (0.2-1.3); Blood Urea Nitrogen 12 mg/dL (7-17); Calcium 8.7 mg/dL (8.4-10.2); Carbon Dioxide 20 mmol/L (22-32); Chloride 103 mmol/L (98-107); Estimated Glomerular Filt Rate > 60.0 mL/min (>60); Globulin 2.8 g/dL (1.7-4.1); Glucose 155 mg/dL (70-100); HEMOLYSIS < 15 (0-50); Potassium 4.2 mmol/L (3.4-5.1); Sodium 131 mmol/L (137-145); Total Protein 6.9 g/dL (6.3-8.2)
[2020-04-24 19:02] LABS: Anisocytosis 2+; Hypochromasia 2+; Microcytosis 3+; Poikilocytosis 1+
[2020-04-24 19:03] LABS: Ovalocytes 2+
[2020-04-24 19:34] LABS: PTT Partial Thromboplastin Tim 25 SECONDS (26.4-36.2)
[2020-04-24] MEDS: ACETAMINOPHEN 325 MG TABLET 975 MG PO (19:41)
[2020-04-24] MEDS: diphenhydrAMINE 50 MG/ML VIAL 25 MG IV (19:42)
== END 2020-04-24 23:43 | disposition home or self-care (01) ==
PROVIDERS: Emergency Medicine; Emergency Provider Emergency Medicine; PCP Internal Medicine
DX: D50.8 Other iron deficiency anemias (principal); R07.9 Chest pain, unspecified; R06.00 Dyspnea, unspecified; F84.5 Asperger's syndrome; R00.0 Tachycardia, unspecified; R07.1 Chest pain on breathing
CPT/HCPCS: 36415; 36430; 80053; 81003; 81025; 82607; 82728; 82746; 83540; 83550; 85025; 85610; 85730; 86850; 86900; 86901; 96374; 99283; 99284; P9016; J1200

== ENCOUNTER → 2020-07-03 09:02 | Outpatient (CLI) | payer MEDICARE, SELFPAY ==
[2019-03-17 08:18] VITALS: BMI 29.5
[2020-07-03 12:02] LABS: COVID19 -Nasal RAPID Negative (Negative)
== END ==
PROVIDERS: PCP Internal Medicine; Visit Provider Physician Assistant
DX: Z20.822 Contact with and (suspected) exposure to COVID-19 (principal)
CPT/HCPCS: 87635; C9803

== ENCOUNTER 2020-07-05 12:10 | Day surgery (SDC) | payer MEDICARE, SELFPAY ==
[2019-03-17 08:18] VITALS: BMI 29.5
[2020-07-05] VITALS (7 sets, daily range): BP systolic 135–156; BP diastolic 82–96; PULSE 87–100; RESP 13–18; TEMP 36.5–36.8; O2SAT 95–100; BMI 35.4
--- NOTE | 2020-07-05 | PATH_ITS ---
[facility] Accession Number: [id number] . 01 Material submitted: . PART A: duodenum - DUODENUM PART B: esophagus - DISTAL ESOPHAGUS PART C: esophagus - PROXIMAL ESOPHAGUS . 02 Diagnosis: A. Duodenum, Biopsy: Duodenal mucosa with no diagnostic abnormality. Negative for active inflammation, features of sprue, dysplasia, or malignancy. . B. Distal Esophagus, Biopsy: Squamous epithelium with mild active inflammation. A PAS stain is negative for fungal organisms. Intraepithelial eosinophils are not increased. Negative for dysplasia and malignancy. . C. Proximal Esophagus, Biopsy: Squamous epithelium with no diagnostic abnormality. Intraepithelial eosinophils are not increased. Negative for dysplasia and malignancy. . [facility] 07/13/2020 1447 Local . 02 Electronically signed: . Yolanda Rankin MD, Pathologist NPI- [id number] . 01 Gross description: . Part A: DUODENUM: Received in formalin are multiple fragment(s) of reyes, soft tissue measuring 0.1 x 0.1 x 0.1 cm to 0.3 x 0.2 x 0.2 cm submitted entirely in 1 cassette(s) Part B: DISTAL ESOPHAGUS: Received in formalin is 1 fragment(s) of reyes, soft tissue measuring 0.2 x 0.2 x 0.2 cm submitted entirely in 1 cassette(s) Part C: PROXIMAL ESOPHAGUS: Received in formalin are 2 fragment(s) of reyes, soft tissue measuring 0.1 x 0.1 x 0.1 cm to 0.2 x 0.2 x 0.2 cm submitted entirely in 1 cassette(s) /CASTILLO 07/07/2020 1902 Local . 02 Microscopic: . B. A PAS stain was performed to evaluate for fungal organisms and is negative. The control stain showed appropriate reactivity. . 02 Pathologist provided ICD-10: R13.14 . 02 CPT . 117512, [id number], 213551, [id number] Performed at: [facility] [address] [address], [place], [place] [id number] MD Albino Salazar MD Phone: [phone] Performed at: [id number] [place], [place] [id number] MD Yolanda Rankin MD Phone: [phone]
[2020-07-05] MEDS: LACTATED RINGERS 1,000 ML 200 ML IV (12:50)
--- NOTE | 2020-07-05 13:41 | P.HP_ITS ---
History of Present Illness History of Present Illness Chief [place] [facility] [place] Medical History Asperger's disorder (07/01/11) Insomnia Iron deficiency anemia Obstructive sleep apnea of adult Snoring Surgical History History of third molar tooth extraction Family & Social History Social History: household members family Tobacco & Substance use: Smoking Status Never smoker alcohol intake current alcohol intake frequency a few times a week Substance Use Type does not use Meds Home Medications and Allergies Home Medications Medication Instructions Recorded Confirmed Type ferrous sulfate 325 mg (65 mg 325 mg PO DAILY tab 03/05/18 05/10/20 History iron) tablet esomeprazole strontium 49.3 mg 49.3 mg PO DAILY #30 cap 04/08/18 05/10/20 Rx capsule,delayed release levonorgestrel-ethinyl estradiol 1 tab PO DAILY #28 tab 03/31/20 05/10/20 Rx 0.1 mg-20 mcg tablet ascorbic acid (vitamin C) [Vitamin 125 mg PO TID #90 tab 04/24/20 07/05/20 Rx C] ferrous gluconate 324 mg PO TID #90 tab 04/24/20 07/05/20 Rx polyethylene glycol 3350 [Miralax] 17 g PO DAILY #100 ea 04/24/20 05/10/20 Rx Allergies Allergy/AdvReac Type Severity Reaction Status Date / Time No Known Drug Allergies Allergy Verified 06/15/19 09:55 Review of Systems Review of Systems ROS: Yes All systems reviewed with the patient and are negative except as otherwise documented Exam Vital Signs (past 8 hours): - 07/05/20 12:34 Temperature 97.9 F Pulse Rate 100 H Respiratory Rate 13 Blood Pressure 156/96 H Pulse Oximetry 100 Oxygen Delivery Method Room Air Narrative Exam Narrative: Awake alert and oriented x3, pupils equal round reactive to light, oropharynx clear, heart regular rate and rhythm, lungs clear to auscultation bilaterally, abdomen nontender and nondistended, extremities without edema, no gross neurologic deficits noted Assessment & Plan Assessment & Plan narrative: Esophageal dysphagia and iron deficiency anemia for EGD COVID-19 COVID-19 status: Negative
[2020-07-05] MEDS: fentaNYL 250 MCG/5 ML INJ IV (13:45)
[2020-07-05] MEDS: MIDAZOLAM 5 MG/5 ML VIAL IV (13:50)
--- NOTE | 2020-07-05 14:05 | P.OP.ENDO_ITS ---
Operative Date/Time/Diagnoses Date of procedure: 07/05/20 Procedure & Clinicians Study performed: EGD with cold forceps biopsy Moderate conscious sedation was administered by the endoscopy nurse and supervised by the endoscopist. The following parameters were monitored: Oxygen saturation, heart rate, blood pressure, and response to care.5mg midazolam, 100mcg fentanyl. Same procedure as scheduled: Yes Indications: Esophageal dysphagia, iron deficiency anemia Procedure Notes Procedure in detail: Prior to the procedure, history and physical was performed, and patient medications and allergies were reviewed. Preprocedure nursing history and assessment was reviewed. Patient identification and proposed procedure were verified by the physician and nurse in the procedure room. The physical status of the patient was reassessed after the procedure. After informed consent was obtained including risks, benefits, and alternatives, the scope was passed under direct vision. Throughout the procedure, the patient's blood pressure, pulse, and oxygen saturations were monitored continuously. The upper endoscope was introduced through the mouth and advanced to the 2nd portion of the duodenum. Retroflexion was performed in the stomach. The patient tolerated the procedure well. In the entire esophagus, subtle circumferential rings and some linear furrows were noted throughout. Pseudodiverticula were seen just above the GE junction which was located at 30 cm from the incisors. Biopsies were taken from proximal and distal esophagus to rule out EOE. A large hiatal hernia measuring 7 cm was noted in the proximal stomach. Moderately severe streaks of erythema were noted in the cardia. The remainder of the stomach was normal appearing. The entire examined duodenum was normal appearing. Biopsies were taken to rule out celiac sprue. Impression: Esophageal mucosal changes concerning for EOE. Rings, linear furrows, and pseudodiverticula noted. Biopsies taken from the proximal and distal esophagus. 7 cm hiatal hernia Streaks of erythema in the proximal stomach which could represent healed Jose 's erosions Normal appearing duodenum. Biopsied Sedation minutes: 11 Complications: other (EBL minimal. No complications) Post-procedure Plan for aftercare: Follow-up pathology results Resume home medications Resume previous diet Follow-up with Dr. Michaels at the next available appointment or as previously scheduled Patient has a contact number available for emergencies. The signs and symptoms of potential delayed complications were discussed with the patient. Return to normal activities tomorrow. Written discharge instructions were provided to the patient. Discharge home with escort
--- NOTE | 2020-07-05 14:33 | SUR.PHASEII ---
Pt rcvd in pacu phase 2 in stable condition denies pain or nausea, drinking jujice without problems and wanting to go home, completely A&O, all dc instructions given and pt verbalizes understanding.
--- NOTE | 2020-07-05 14:39 | SUR.PHASEII ---
Pts on his way now. Pt up and ambulating gait steady and getting dressed now.
--- NOTE | 2020-07-05 14:43 | SUR.PHASEII ---
iv dcd by bryce Priest site clear.
--- NOTE | 2020-07-05 14:47 | SUR.PHASEII ---
Pt sitting up in chair dressed and ready to go waiting for to call.
== END 2020-07-05 14:57 | disposition home or self-care (01) ==
PROVIDERS: PCP Internal Medicine; Referring Provider Internal Medicine; Visit Provider Internal Medicine
PROC: 0DJ08ZZ Inspection of Upper Intestinal Tract, Via Natural or Artificial Opening Endoscopic (ICD-10-PCS; CPT 43235; principal; 2020-07-05 13:30)
DX: K20.90 Esophagitis, unspecified without bleeding (principal); K44.9 Diaphragmatic hernia without obstruction or gangrene; D50.9 Iron deficiency anemia, unspecified; F84.5 Asperger's syndrome; G47.33 Obstructive sleep apnea (adult) (pediatric)
CPT/HCPCS: 43239; J2250; J3010

== ENCOUNTER 2020-09-29 12:23 | Emergency (ER) | payer MEDICARE, SELFPAY ==
[2019-03-17 08:18] VITALS: BMI 29.5
[2020-09-29] VITALS (7 sets, daily range): BP systolic 125–143; BP diastolic 72–85; PULSE 90–122; RESP 14–20; TEMP 37; O2SAT 96–98; BMI 38.0
--- NOTE | 2020-09-29 12:30 | DI.CT.S_ITS ---
PROCEDURE: CT HEAD/BRAIN WO CON INDICATIONS: seizure TECHNIQUE: Noncontrast 4.5 mm thick angled axial sections acquired from the foramen magnum to the vertex, with coronal and sagittal reformats. For radiation dose reduction, the following was used: automated exposure control, adjustment of mA and/or kV according to patient size. COMPARISON: [facility], CT, HEAD WITHOUT CONTRAST, 06/08/2008, 17:42. FINDINGS: Image quality: Diagnostic. Patient motion artifact. CSF spaces: Basal cisterns are patent. No extra-axial fluid collections. Ventricles are normal in size and shape. Brain: No midline shift. No intracranial masses or hemorrhage. Pepper-white matter interface is normal. Skull and face: Calvarium and visualized facial bones are intact, without suspicious lesions. Sinuses: Visualized sinuses and mastoids are clear. IMPRESSION: No evidence of acute stroke, hemorrhage, or mass. Dictated by: Mario Mejía M.D. on 09/29/2020 at 13:05 Approved by: Mario Mejía M.D. on 09/29/2020 at 13:07
--- NOTE | 2020-09-29 12:37 | ED.SEIZURE ---
HPI - Seizure General Chief Complaint: Seizure Stated Complaint: Seizure Time Seen by Provider: 09/29/20 12:29 Source: patient and EMS Mode of arrival: EMS Limitations: no limitations History of Present Illness HPI Narrative: Patient is a 35-year-old female with remote history of seizures never been placed on seizure medication had brief witness of seizure and unresponsiveness. She now is awake but confused. She thinks that she bit her tongue. She has no numbness tingling or weakness a. She states that she does drink alcohol but is occasionally and not significant amount. She says she has been eating and drinking regularly. she has been sleeping as well. She denies any new medications. She denies any neck pain. Dad now here states that she has a history of Asperger's. Last seizure was actually 4 5 years ago watching [employer]. He also states that caffeine affects her significantly. She has been drinking energy drinks and having large glasses of coffee lately. She states this morning she had of too much coffee. Related Data Home Medications Medication Instructions Recorded Confirmed ferrous sulfate 325 mg (65 mg 325 mg PO DAILY tab 03/05/18 08/15/20 iron) tablet Previous Rx's Medication Instructions Recorded esomeprazole strontium 49.3 mg 49.3 mg PO DAILY #30 cap 04/08/18 capsule,delayed release levonorgestrel-ethinyl estradiol 1 tab PO DAILY #28 tab 03/31/20 0.1 mg-20 mcg tablet ascorbic acid (vitamin C) 125 mg 125 mg PO TID #90 tab 04/24/20 chewable tablet (Vitamin C) ferrous gluconate 324 mg (38 mg 324 mg PO TID #90 tab 04/24/20 iron) tablet polyethylene glycol 3350 17 gram 17 g PO DAILY #100 ea 04/24/20 oral powder packet (Miralax) Allergies Allergy/AdvReac Type Severity Reaction Status Date / Time No Known Drug Allergies Allergy Verified 06/15/19 09:55 Review of Systems Review of Systems Narrative: GENERAL: Denies chills, fatigue, malaise, fever, sweats, travel HEENT: Denies sinus pain, ear pain, sore throat, difficulty swallowing, neck pain RESPIRATORY: Denies dyspnea, cough, wheezing, hemoptysis, sputum. CARDIOVASCULAR: Denies chest pain, palpitations, orthopnea, edema GASTROINTESTINAL: Denies nausea, vomiting, abdominal pain, diarrhea, constipation, melena. : Denies dysuria, frequency, incontinence, hematuria, urinary retention, flank pain. MUSCULOSKELETAL: Denies weakness, joint pain, or bony pain SKIN: No rash, no erythema, no pruritus NEUROLOGIC: See HPI PSYCHIATRIC: No concerning psychosocial issues. 12 point review of systems is negative except for those stated above and HPI Patient History Medical History Asperger's disorder (07/01/11) Insomnia Iron deficiency anemia Obstructive sleep apnea of adult Snoring Surgical History History of third molar tooth extraction Social History household members: family Smoking Status: Never smoker second hand exposure: Yes (sometimes at work.) alcohol intake: current substance use type: does not use Smoking Status: Never smoker alcohol intake frequency: a few times a week Substance Use Type: does not use Exam Initial Vital Signs Initial Vital Signs: Vital Signs Temperature 98.6 F 09/29/20 12:27 Pulse Rate 122 H 09/29/20 12:27 Respiratory Rate 20 09/29/20 12:27 Blood Pressure 141/85 H 09/29/20 12:27 Pulse Oximetry 96 09/29/20 12:27 GENERAL: Well-appearing, well-nourished and in no acute distress. HEENT: Head atraumatic,EOMI, pupils reactive, face symmetric, she did bite her tongue NECK: No vertebral tenderness no step-offs CARDIOVASCULAR: Regular rate and rhythm without murmurs, rubs or gallops. RESPIRATORY: Breath sounds equal bilaterally, no wheezes rales or rhonchi. ABDOMEN: Soft, nontender. Normoactive bowel sounds all 4 quadrants. No guarding or rebound. EXTREMITIES: Normal range of motion, no clubbing or edema. Neurovascularly intact NEUROLOGICAL: Alert and oriented x4.Normal gait and speech. Cranial nerves II through XII grossly intact. Rn Clinical Trials strength equal bilaterally SKIN: Warm, dry, no laceration, no petechiae, no rashes or lesions. Scores NIH Stroke Scale Level of Conciousness: Alert, keenly responsive Ask month/age: Answers both questions correctly. Open/close eyes, close hand: Performs both tasks correctly Best gaze horizontal: Normal Visual mccallum: No visual loss Facial palsy: Normal symetrical movement Left arm drift: No drift for full 10 sec Right arm drift: No drift for full 10 sec Left leg drift: No drift for full 5 sec Right leg drift: No drift for full 5 sec Limb ataxia: Absent Sensory on face/arms/legs: Normal, no sensory loss Best language: No aphasia, normal Dysarthria: Normal Extinction or inattention: No abnormality Total NIH Stroke scale score: 0 Course Orders Ordered: ED Orders 09/29/20 12:30 CT head/brain wo con Stat 09/29/20 12:35 Complete Blood Count AUTO DIFF Stat Comprehensive Metabolic Panel Stat Ethanol (ETOH) Stat Prolactin Stat 09/29/20 15:30 Urine Drug Screen, Rapid Stat Discontinued Medications Ketorolac Tromethamine (Ketorolac 30 Mg/Ml Vial) 30 mg IV NOW ONE Stop: 09/29/20 15:15 Last Admin: 09/29/20 15:35 Dose: 30 mg Documented by: SAMUEL Vital Signs Vital signs: Vital Signs - 8 hr 09/29/20 12:27 09/29/20 13:37 09/29/20 14:00 Temperature 98.6 F Pulse Rate 122 H 93 H 90 Respiratory Rate 20 16 18 Blood Pressure 141/85 H 143/79 H 129/77 Pulse Oximetry 96 96 97 09/29/20 14:30 09/29/20 15:00 09/29/20 15:29 Temperature Pulse Rate 95 H 97 H 98 H Respiratory Rate 20 14 18 Blood Pressure 134/76 141/82 H 137/78 Pulse Oximetry 97 98 98 09/29/20 15:30 Temperature Pulse Rate 103 H Respiratory Rate 17 Blood Pressure 125/72 Pulse Oximetry 97 MDM - Seizure Lab Data Result diagrams: 09/29/20 12:35 09/29/20 12:35 Labs: Lab Results 09/29/20 09/29/20 09/29/20 Range/Units 12:35 12:35 15:30 WBC 8.0 (4.5-11.0) X10^3/uL RBC 4.86 (4.0-5.2) X10^6/uL Hgb 13.6 (12.0-16.0) g/dL Hct 41.9 (36-46) % MCV 86.2 (80-100) fL MCH 27.9 (26-34) PG MCHC 32.4 (30-36) % RDW 14.3 (11.6-14.8) % Plt Count 258 (150-400) X10^3/uL Neut % (Auto) 60.5 (50-75) % Lymph % (Auto) 24.6 L (25-40) % [place] % (Auto) 11.0 (3-14) % Eos % (Auto) 3.1 (2-4) % Baso % (Auto) 0.8 (0-2) % Neut # (Auto) 4800 (2042-5491) /uL Lymph # (Auto) 2000 (4569-5827) /uL [place] # (Auto) 900 (0-900) /uL Eos # (Auto) 300 (0-450) /uL Baso # (Auto) 100 (0-100) /uL Sodium 139 (137-145) mmol/L Potassium 3.8 (3.4-5.1) mmol/L Chloride 106 (98-107) mmol/L Carbon Dioxide 18 L (22-32) mmol/L BUN 13 (7-17) mg/dL Creatinine 0.74 (0.52-1.04) mg/dL Estimated GFR > 60.0 (>60) mL/min BUN/Creatinine Ratio 17.6 (6-22) Glucose 114 H (70-100) mg/dL Calcium 9.3 (8.4-10.2) mg/dL Total Bilirubin 0.4 (0.2-1.3) mg/dL AST 33 (14-36) IU/L ALT 23 (<35) IU/L Alkaline Phosphatase 73 (38-126) U/L Total Protein 8.1 (6.3-8.2) g/dL Albumin 4.6 (3.5-5.0) g/dL Globulin 3.5 (1.7-4.1) g/dL Albumin/Globulin Ratio 1.3 (1.0-2.8) Prolactin 305.0 H (3.0-18.6) ng/mL U Opiates 300ng/mL cut Negative (Negative) Ur Oxycodone Screen Negative (Negative) Urine Methadone Screen Negative (Negative) Ur Barbiturates Screen Negative (Negative) U Tricyclic Antidepress Negative (Negative) Ur Phencyclidine Scrn Negative (Negative) Ur Amphetamines Screen Negative (Negative) U Methamphetamines Scrn Negative (Negative) Ur MDMA Scrn (Ecstasy) Negative (Negative) U Benzodiazepines Scrn Negative (Negative) Urine Cocaine Screen Negative (Negative) U Marijuana (THC) Screen Negative (Negative) Ethyl Alcohol < 10 ( - 10) mg/dL Point of Care Testing Glucose POC 110 Urine Dip Bedside Urine Glucose Negative Bedside Urine Bilirubin - Negative Bedside Urine Ketone - Negative Urine Specific [place] 1.030 Bedside Urine Occult Blood - Negative Bedside Urine pH 6.0 Bedside Urine Protein +/- 15 Bedside Urine Urobilinogen - Negative Bedside Urine Nitrite - Negative Bedside Urine Leukocytes - Negative Esterase Imaging Data CT scan - head: Radiologist's Impression: PROCEDURE: CT HEAD/BRAIN WO CON INDICATIONS: seizure TECHNIQUE: Noncontrast 4.5 mm thick angled axial sections acquired from the foramen magnum to the vertex, with coronal and sagittal reformats. For radiation dose reduction, the following was used: automated exposure control, adjustment of mA and/or kV according to patient size. COMPARISON: [facility], CT, HEAD WITHOUT CONTRAST, 06/08/2008, 17:42. FINDINGS: Image quality: Diagnostic. Patient motion artifact. CSF spaces: Basal cisterns are patent. No extra-axial fluid collections. Ventricles are normal in size and shape. Brain: No midline shift. No intracranial masses or hemorrhage. Pepper-white matter interface is normal. Skull and face: Calvarium and visualized facial bones are intact, without suspicious lesions. Sinuses: Visualized sinuses and mastoids are clear. IMPRESSION: No evidence of acute stroke, hemorrhage, or mass. Dictated by: Mario Mejía M.D. on 09/29/2020 at 13:05 MDM Narrative Medical decision making narrative: Patient stand no at bedside she has a history of seizures. He states that she reacts very sensitive to coffee. I do not believe coffee induced her seizure today however I still recommend that she avoid it. Dad says she is drinking loss of energy drinks as well. Which may be affecting her sleep which could actually cause her to have a seizure. I recommended that she follow-up with her PCP and possibly Neurology. She has previously not had a seizure for a number of years. Discharge Plan Departure Patient Disposition: Home Clinical Impression: Seizure Instructions: DI for Seizure Disorder -- Adult Activity Restrictions/Additional Instructions: DO NOT DRIVE UNTIL SEEN AND EVALUATED BY NEUROLOGY *You have been diagnosed with seizure *What to do: Your seizure today may have been from coffee. Please avoid all energy drinks and coffee and caffeine, and alcohol. Increase fluid intake with water or Gatorade. *Continue to take medications as directed Tylenol 650 mg every 4-6 hours if the pain *Follow up with your primary care provider in 2-3 days *Return to ER if you should have recurrent seizure, persistent vomiting, weakness numbness or tingling or any new, worsening or concerning symptoms Prescriptions: No Action ferrous sulfate 325 mg (65 mg iron) tablet 325 mg PO DAILY RF: 0 esomeprazole strontium 49.3 mg capsule,delayed release(DR/EC) 49.3 mg PO DAILY Qty: 30 RF: 1 levonorgestrel-ethinyl estrad 0.1-20 mg-mcg tablet 1 tab PO DAILY Qty: 28 RF: 0 ferrous gluconate 324 mg (38 mg iron) tablet 324 mg PO TID Qty: 90 RF: 2 ascorbic acid (vitamin C) [Vitamin C] 125 mg tablet,chewable 125 mg PO TID Qty: 90 RF: 2 polyethylene glycol 3350 [Miralax] 17 gram powder in packet 17 g PO DAILY Qty: 100 RF: 2 Referrals: Kenzie Courtney MD [Primary Care Provider] -
[2020-09-29 12:38] LABS: Add Manual Diff / Slide Review NO; Basophils Absolute Auto 100 /uL (0-100); Basophils Percent Auto 0.8 % (0-2); Eosinophils Absolute Auto 300 /uL (0-450); Eosinophils Percent Auto 3.1 % (2-4); Hematocrit 41.9 % (36-46); Hemoglobin 13.6 g/dL (12.0-16.0); Lymphocytes Absolute Auto 2000 /uL (1100-4500); Lymphocytes Percent Auto 24.6 % (25-40); Mean Corpuscular HGB Conc 32.4 % (30-36); Mean Corpuscular Hemoglobin 27.9 PG (26-34); Mean Corpuscular Volume 86.2 fL (80-100); Monocytes Absolute Auto 900 /uL (0-900); Neutrophils Absolute Auto 4800 /uL (1500-7000); Neutrophils Percent Auto 60.5 % (50-75); Platelet Count 258 X10^3/uL (150-400); Red Blood Cell Count 4.86 X10^6/uL (4.0-5.2); Red Cell Distribution Width 14.3 % (11.6-14.8)
[2020-09-29 12:52] LABS: Alanine Aminotransferase 23 IU/L (<35); Albumin 4.6 g/dL (3.5-5.0); Albumin Globulin Ratio 1.3 (1.0-2.8); Alkaline Phosphatase 73 U/L (38-126); Aspartate Aminotransferase 33 IU/L (14-36); BUN Creatinine Ratio 17.6 (6-22); Bilirubin Total 0.4 mg/dL (0.2-1.3); Blood Urea Nitrogen 13 mg/dL (7-17); Calcium 9.3 mg/dL (8.4-10.2); Carbon Dioxide 18 mmol/L (22-32); Chloride 106 mmol/L (98-107); Estimated Glomerular Filt Rate > 60.0 mL/min (>60); Ethanol (ETOH) < 10 mg/dL; Globulin 3.5 g/dL (1.7-4.1); Glucose 114 mg/dL (70-100); Potassium 3.8 mmol/L (3.4-5.1); Sodium 139 mmol/L (137-145); Total Protein 8.1 g/dL (6.3-8.2)
[2020-09-29 13:31] LABS: HEMOLYSIS 50 (0-50)
[2020-09-29] MEDS: KETOROLAC 30 MG/ML VIAL IV (15:35)
[2020-09-29 15:54] LABS: UR Morphine/Opiate cutoff 300 Negative (Negative); Ur Creatinine Normal (Normal); Ur Specific Gravity Normal (Normal); Urine Amphetamines Negative (Negative); Urine Barbiturates Negative (Negative); Urine Benzodiazepines Negative (Negative); Urine Cocaine Negative (Negative); Urine MDMA Negative (Negative); Urine Methadone Negative (Negative); Urine Methamphetamines Negative (Negative); Urine Oxycodone Negative (Negative); Urine Phencyclidine Negative (Negative); Urine Tetrahydrocannabinol Negative (Negative); Urine Tricyclic Antidepressant Negative (Negative); Urine pH Normal (Normal)
== END 2020-09-29 15:55 | disposition home or self-care (01) ==
PROVIDERS: Emergency Provider Emergency Medicine; PCP Internal Medicine
DX: R56.9 Unspecified convulsions (principal)
CPT/HCPCS: 36415; 70450; 80053; 80305; 80320; 81003; 84146; 85025; 96374; 99283; 99284; J1885